=== PATIENT | female | born 1975 | race Caucasian/White ===

== ENCOUNTER 2018-01-06 09:44 | Emergency (ER) | payer OTHER, SELFPAY ==
[2018-01-06 09:45] VITALS: BP 148/97; PULSE 100; RESP 16; TEMP 36.8; O2SAT 98; BMI 38.2
--- NOTE | 2018-01-06 09:55 | CT_ITS ---
STUDY: CT ABDOMEN AND PELVIS WITH CONTRAST REASON FOR EXAM: Female, 42 years old. Lower abdominal pain. RADIATION DOSAGE (If Supplied By Facility): CTDIvol = ( 14.45 ) mGy, DLP = ( 1053.09 ) mGycm TECHNIQUE: Transaxial images were obtained from the dome of the diaphragm to the symphysis pubis with oral contrast. 100ML ml of Isovue 300 contrast was administered. Sagittal and coronal images were reconstructed. Individualized dose optimization techniques were used for this CT. COMPARISON: None. FINDINGS: Minimal degree of bibasilar atelectasis. The visualized portions of the heart are within normal limits. Minimal degree of the intrahepatic biliary ductal dilatation. One centimeters cyst in the medial portion of the left lobe of liver. Findings he is of sludge or tiny gallstones in the gallbladder lumen. Borderline splenomegaly. Normal pancreas. Normal bilateral adrenal glands. Normal right kidney. Normal left kidney. Normal visualized stomach. Normal small intestine. Normal colon. There is a 6.5 cm x 9.1 cm x 7.9 cm complex solid and cystic changes seen in the left lower abdomen and left pelvis. Focal calcification is seen within it. There is evidence of a increased markings in the surrounding peritoneal fat suggestive of possible inflammatory process. A small amount of fluid is seen in both paracolic gutters. Correlation with ultrasound is recommended to rule out a complicated left ovarian mass. There is scattered atherosclerotic calcification of the abdominal aorta, without a demonstrated aneurysm. Normal inferior vena cava. There is borderline retroperitoneal lymphadenopathy with enlarged nodes no greater than 10mm in the short axis diameter. Normal urinary bladder. There is evidence of bilateral tubal ligation. Normal abdominal wall. Degenerative changes at the L5-S1 level. CT/Abdomen/Pelvis WITH Contrast IMPRESSION: Complex solid and cystic mass seen in the left lower abdomen and left pelvis as described with increased markings in the surrounding peritoneal fat. A small amount of fluid is seen in both paracolic gutters. Correlation with ultrasound of the pelvis is recommended for further evaluation. Electronically Signed: Daniel Gross MD at 12:39 EDT Tel [phone], Service support ,
[2018-01-06 10:14] LABS: Absolute Lymphocyte Count 0.82 X10^3/ul (0.83-4.51); Absolute Neutrophil Count 11.3 X10^3/uL (2.0-7.7); Basophil# 0.01 X10^3/uL; Basophil% 0.1 % (0-1); Eosinophil# 0.03 X10^3/uL; Eosinophils% 0.2 % (0-5); Hematocrit 35.9 % (37-47); Hemoglobin 12.1 g/dl (12.0-15.0); Lymphocyte # 0.82 X10^3/ul (4.0); Mean Corp Hgb Conc 33.7 g/gl (32-36); Mean Corpuscular Hgb 28.3 pg (27.0-32.0); Mean Corpuscular Volume 84.1 fL (81-99); Monocyte# 1.51 X10^3/uL; Neutrophil # 11.33 X10^3/uL (2.7-7.7); Neutrophil % 82.5 % (47-70); Platelet Count 321 K/mm3 (150-450); RBC Distribution Width CV 16.5 % (11.6-14.6); RBC Distribution Width SD 50.4 fl (35.1-43.9); Red Blood Count 4.27 M/mm3 (4.2-5.4); White Blood Count 13.7 K/mm3 (4.4-11.0)
[2018-01-06 10:15] LABS: Differential Indicated SCAN CRITERIA MET; POSITIVE COUNT NO; POSITIVE DIFFERENTIAL YES; POSITIVE MORPHOLOGY NO
[2018-01-06] MEDS: Ondansetron 4 MG/2 ML Vial IV (10:27)
[2018-01-06] MEDS: 0.9% Normal Saline 1,000 ML 1000 ML IV (10:27)
[2018-01-06 10:28] LABS: AST(SGOT) 10 U/L (15-37); Alanine Aminotransfer ALT/SGPT 11 U/L (13-56); Albumin, Serum 3.2 g/dL (3.2-5.0); Alkaline Phosphatase 96 U/L (45-117); Anion Gap 9 (5-15); BUN 7 mg/dL (7-18); BUN/Creat Ratio 12.2 RATIO (10-20); Bilirubin, Direct 0.22 mg/dL (0.00-0.30); Calcium,Total 8.9 mg/dL (8.5-10.1); Chloride 98 mmol/L (98-107); Creatinine, Serum 0.58 mg/dL (0.55-1.02); EST Glomerular Filtration Rate 121 mL/min (>60); Est Glom Filt Rate - Afr Amer 147 mL/min (>60); Estimated Creatinine Clearance 103.46 ml/min; Globulin 4.5 g/dL (2.2-4.2); Glucose 121 mg/dL (74-106); Lipase 56 U/L (73-393); Potassium 3.1 mmol/L (3.5-5.1); Protein, Total 7.7 g/dL (6.4-8.2); Sodium Level 136 mmol/L (136-145)
[2018-01-06 10:34] LABS: Pregnancy, Serum, hCG Quali. NEGATIVE Negative (0-9 Nonpreg)
[2018-01-06 10:36] LABS: Differential Comment SCANNED
[2018-01-06 10:36] LABS: Color, Urine Yellow (Yellow); Glucose, Dipstick Normal (Normal); Ketone-Dipstick 50 mg/dl (Negative); Leukocyte Esterase-Dipstick 500 /ul (Negative); Nitrite-Dipstick Negative (Negative); Occult Blood-Urine 10 /ul (Negative); Protein-Dipstick 30 mg/dl (Negative); Urine Bilirubin Dipstick Negative (Negative); Urine Clarity Sl. Cloudy (Clear); Urine Urobilinogen 1 mg/dl (Normal)
[2018-01-06 10:42] LABS: Bacteria 2+ /hpf (None Seen); Mucous, Urine 1+ /hpf (<or=2+); Red Blood Cells-Urine 0-5 SEEN /hpf (0-5); Squamous Epithelial Cells - UA 5-10 SEEN /hpf (5-10); White Blood Cells 25-50 SEEN /hpf (0-5)
--- NOTE | 2018-01-06 10:50 | ED.VISSUMM ---
- ER Visit Summary Date of Service: 01/06/18 Chief Complaint: Abdominal pain History of Present Illness: The patient is a 42 F who goes to [facility]. She reports that she has lower abdominal pain that began 3 days ago. Is gradually gotten worse. Is a sharp pain is 10 out of 10 at worst and 6 out of 10 currently. Is worsened by movement and relieved by oxycodone. She was she has been nausea and vomited once. No blood or emesis. Her last bowel was 2 days ago. She has had no diarrhea. No melena or hematochezia. She does reports she has had dysuria, but no frequency or hematuria. Last menstrual it was approximately 1 week ago. She denies any vaginal discharge. Patient reports that she had a similar episode last August and had a workup in [place] that was negative. She went to [place] the next day and was diagnosed with an ovarian cyst. She followed up with Dr. Anna Medrano and had an extra toward laparoscopy that showed no cyst, but a great deal of scar tissue that was debrided. Physical Examination: Vitals: Stable. Afebrile. General: Well-nourished and well-developed. Head: Normocephalic atraumatic. Neck: Supple, no lymphadenopathy. No JVD. Nontender. Cardiovascular: Regular rate and rhythm. No murmurs. Respiratory: No respiratory distress. Clear to auscultation bilaterally. Abdominal: Soft, mild diffuse tenderness palpation with moderate pain over the left lower quadrant, suprapubic region, and right lower quadrant, nondistended, normal bowel sounds. No guarding, rebound, or peritoneal signs. Back: Nontender. Extremities: Nontender, no edema. Skin: Normal color, no rash. Neurologic: Alert and oriented ?3. Cranial nerves II through XII are intact. Normal strength and sensation. Psych: Normal affect. Test Results: CBC is marked for white count of 13.7 with 83 segmented neutrophils and 6 lymphocytes. Her hematocrit is 35.9. Chem-7 marked potassium 3.1 glucose 121. test is negative. LFTs marked for globulin 4.5, ALT of 11, AST of 10. Lipase is normal. UA shows 25-50 whites and 5-10 epithelial cells with 2+ bacteria. CT shows a 6.5 x 9.1 x 7.9 cm complex solid/cystic mass in the left lower abdomen/pelvis with focal calcifications within it. Increased markings in the surrounding peritoneal fat question inflammatory. Ultrasound was suggested. This shows a the left ovary to be 6.3 x 5.6 x 4.4 cm with a 4.7 x 3.8 x 3.1 cm complex solid and cystic mass. Neoplastic versus inflammatory. Normal flow. Emergency Department Course and Treatment: Patient had an IV placed. She was given morphine and Zofran IV. She is resting comfortably. Treatment Plan: The patient was discussed with Dr. Barksdale, on-call for Dr. Anna Medrano. The operative report from September was reviewed with him. At that time her left ovary appeared normal. She will have a CEA 125 sent off and be discharged with naproxen and Percocet. Instructed follow-up with Dr. Lily Medrano in 1 week for another exam. Return to the emergency department for any worsening symptoms. Disposition: To home in improved and stable condition. Impression: 1. Left ovarian cyst/mass. This note was generated with [employer] dictation software. It may contain incorrect words, spelling, and punctuation that were not noted in review of the chart prior to signing ED Disposition - Plan for ED Patient: Chief Complaint: Abd Pain Instructions: ED Cyst Ovarian Prescriptions: Oxycodone HCl/Acetaminophen [Percocet 5/325] 1 tablet PO Q6H PRN PRN 5 Days #20 tablet PRN Reason: Pain Naproxen [Naprosyn] 500 mg PO BID PRN #20 tablet Referrals: Jelena Calhoun MD [STAFF PHYSICIAN] - 1 Week
[2018-01-06 12:23] VITALS: BP 121/73; PULSE 79; RESP 16; O2SAT 98
--- NOTE | 2018-01-06 12:49 | US_ITS ---
STUDY: ULTRASOUND OF THE FEMALE PELVIS - COMPLETE REASON FOR EXAM: Female, 42 years old. Left pelvic pain. Pelvic mass seen on a recent CT scan. LMP: December 26, 2017. TECHNIQUE: Transabdominal and Transvaginal TECHNICAL QUALITY: Adequate. COMPARISON: Comparison is made with prior CT scan of the pelvis done earlier today. FINDINGS: The uterus is anteverted and is tilted to the right side of the pelvis. The uterus is enlarged and measures 10.2 cm x 6.8 cm x 5.3 cm. There is a Nabothian cyst of the cervix. The endometrium measures 6.0 mm in thickness, and is . There is no demonstrated endometrial mass. There is a 1.6 cm x 1.4 cm x 1.0 cm fundal fibroid. I.U.D. - The patient does not have an I.U.D. The right ovary is visualized. The right ovary measures 4.2 cm x 2.8 x 2.2 cm. There is no right ovarian cyst or ovarian mass. There is no visualized right adnexal mass or complex lesion. There is normal arterial and normal venous vascularity. The left ovary is visualized. The left ovary is enlarged and measures 6.3 cm x 5.6 cm x 4.4 cm. There is a 4.7 cm x 3.8 cm x 3.1 cm complex solid and cystic mass in the left adnexa. This may represent either a neoplastic process or inflammatory process. Follow-up is recommended. There is no visualized left adnexal mass or complex lesion. There is normal arterial and normal venous vascularity. There is minimal fluid in the cul-de-sac. Polycystic ovary disease: No. US/Transvaginal Non- IMPRESSION: Complex solid and cystic mass in the left adnexa corresponding to the CT findings. Electronically Signed: Daniel Gross MD at 14:32 EDT Tel [phone], Service support ,
[2018-01-06 16:14] VITALS: BP 134/74; BP 134/76; PULSE 84; PULSE 89; RESP 16; O2SAT 94
[2018-01-08 11:29] LABS: Cancer Antigen 125 44.6 U/mL (0.0-38.1)
== END 2018-01-06 16:16 | disposition home or self-care (01) ==
PROVIDERS: Emergency Provider Emergency Medicine
DX: N83.292 Other ovarian cyst, left side (principal)
CPT/HCPCS: 36415; 74177; 76830; 80048; 80076; 81001; 83690; 84703; 85025; 86304; 93976; 96361; 96374; 96375; 96376; 99283; J7030; Q9967; A4216; J2405

== ENCOUNTER → 2018-01-16 17:36 | Outpatient (CLI) | payer OTHER, SELFPAY ==
--- NOTE | 2018-01-16 18:15 | MRI_ITS ---
STUDY: MR PELVIS WITH T WITHOUT CONTRAST REASON FOR EXAM: Female, 42 years old. Evaluate left adnexal mass. TECHNIQUE: Standardized fat and water weighted pulse sequences were obtained in all 3 orthogonal planes, pre-and post contrast administration. 10 ml of Gadavist contrast material was administered intravenously for the contrast portion of the examination. COMPARISON: Pelvic ultrasound dated January 06, 2018. FINDINGS: Normal urinary bladder. Normal visualized small intestine. Normal visualized colon. The uterus is enlarged. There are multiple myometrial masses. The posterior myometrial mass measures 2.2 x 1.8 x 2.4 cm in size. There is an anterior uterine myometrial mass measuring approximately 1.9 cm in greatest dimension. These masses have decreased T2 signal. There is also left paramedian myometrial mass located within the posterior fundus measuring approximately 1.9 cm in greatest dimension. The junctional zone measures approximately 1.4 cm in thickness. The cervix has a nabothian cysts. The cervix otherwise has a normal appearance. Endometrium has bright T2 signal and measures approximately 10 mm in thickness. There is no pelvic fluid. There is enlargement of the left ovary with what appears to multiple cystic lesions. These are bright on the T2-weighted images and isointense to uterine myometrium on the T1 weighted images. The largest cystic lesion measures up to 2.4 cm in greatest dimension. The the overall dimensions of what probably represents an enlarged left ovary is 4.7 x 2.8 x 4.1 cm in greatest dimension. The right ovary also has multiple cystic lesions. The right ovary measures approximately 4.0 x 2.3 x 2.0 cm in size. Normal visualized pelvic arteries. There is degenerative disc disease at L5-S1 with narrowing of the disc. The visualized sacrum and iliac wings have a grossly normal appearance. Normal abdominal wall. MRI/Pelvis W/WO Contrast IMPRESSION: 1. Enlarged left ovary secondary to multiple cysts. This suggests possible sequela of polycystic ovary disease. 2. Multiple uterine masses likely representing leiomyomata. 3. The right ovary also has multiple cystic lesions. Electronically Signed: Meli Chiu MD at 7:33 EDT , Service support ,
== END ==
PROVIDERS: Visit Provider Obstetrics & Gynecology
DX: N83.202 Unspecified ovarian cyst, left side (principal); N83.201 Unspecified ovarian cyst, right side; R19.09 Other intra-abdominal and pelvic swelling, mass and lump; R10.30 Lower abdominal pain, unspecified
CPT/HCPCS: 72197; A9585

== ENCOUNTER → 2018-01-17 15:49 | Outpatient (CLI) | payer OTHER, SELFPAY ==
[2018-01-17 16:25] LABS: Absolute Lymphocyte Count 2.01 X10^3/ul (0.83-4.51); Absolute Neutrophil Count 6.4 X10^3/uL (2.0-7.7); Basophil# 0.02 X10^3/uL; Basophil% 0.2 % (0-1); Eosinophil# 0.27 X10^3/uL; Eosinophils% 2.9 % (0-5); Hematocrit 37.1 % (37-47); Hemoglobin 11.7 g/dl (12.0-15.0); Lymphocyte # 2.01 X10^3/ul (4.0); Lymphocyte % 21.9 % (19-41); Mean Corp Hgb Conc 31.5 g/gl (32-36); Mean Corpuscular Hgb 26.9 pg (27.0-32.0); Mean Corpuscular Volume 85.3 fL (81-99); Mean Platelet Vol. 9.7 fl (6.2-12.0); Monocyte# 0.45 X10^3/uL; Monocyte% 4.9 % (0-10); Neutrophil % 69.7 % (47-70); Platelet Count 481 K/mm3 (150-450); RBC Distribution Width CV 16.7 % (11.6-14.6); RBC Distribution Width SD 52.6 fl (35.1-43.9); Red Blood Count 4.35 M/mm3 (4.2-5.4); White Blood Count 9.2 K/mm3 (4.4-11.0)
[2018-01-17 17:08] LABS: POSITIVE COUNT NO; POSITIVE DIFFERENTIAL NO; POSITIVE MORPHOLOGY NO
== END ==
PROVIDERS: Visit Provider Obstetrics & Gynecology
DX: D72.829 Elevated white blood cell count, unspecified (principal)
CPT/HCPCS: 36415; 85025

== ENCOUNTER → 2018-04-04 14:33 | Outpatient (CLI) | payer OTHER, SELFPAY ==
[2018-04-09 15:00] LABS: HPV APTIMA, High Risk Negative (Negative)
== END ==
PROVIDERS: Visit Provider Obstetrics & Gynecology
DX: Z01.419 Encounter for gynecological examination (general) (routine) without abnormal findings (principal)
CPT/HCPCS: 88175; G0145

== ENCOUNTER → 2019-03-13 14:29 | Outpatient (CLI) | payer OTHER, SELFPAY ==
[2019-03-13 15:42] LABS: Absolute Lymphocyte Count 1.59 X10^3/ul (0.83-4.51); Absolute Neutrophil Count 4.7 X10^3/uL (2.0-7.7); Basophil# 0.02 X10^3/uL; Basophil% 0.3 % (0-1); Eosinophil# 0.25 X10^3/uL; Eosinophils% 3.4 % (0-5); Hematocrit 37.3 % (37-47); Lymphocyte # 1.59 X10^3/ul (4.0); Lymphocyte % 21.9 % (19-41); Mean Corp Hgb Conc 32.2 g/gl (32-36); Mean Corpuscular Hgb 26.3 pg (27.0-32.0); Mean Corpuscular Volume 81.8 fL (81-99); Monocyte# 0.63 X10^3/uL; Monocyte% 8.7 % (0-10); Neutrophil # 4.74 X10^3/uL (2.7-7.7); Neutrophil % 65.3 % (47-70); Platelet Count 368 K/mm3 (150-450); RBC Distribution Width CV 22.1 % (11.6-14.6); RBC Distribution Width SD 63.8 fl (35.1-43.9); Red Blood Count 4.56 M/mm3 (4.2-5.4); White Blood Count 7.3 K/mm3 (4.4-11.0)
[2019-03-13 15:54] LABS: Differential Indicated SCAN CRITERIA MET; POSITIVE COUNT NO; POSITIVE DIFFERENTIAL NO; POSITIVE MORPHOLOGY YES
[2019-03-13 16:08] LABS: ALB/GLOB Ratio 1.1 RATIO (0.9-2.4); AST(SGOT) 13 U/L (15-37); Alanine Aminotransfer ALT/SGPT 17 U/L (13-56); Albumin, Serum 3.7 g/dL (3.2-5.0); Alkaline Phosphatase 91 U/L (45-117); Anion Gap 5 (5-15); BUN 18 mg/dL (7-18); BUN/Creat Ratio 29.2 RATIO (10-20); Calcium,Total 8.5 mg/dL (8.5-10.1); Chloride 108 mmol/L (98-107); Cholesterol 219 mg/dL (200); Creatinine, Serum 0.62 mg/dL (0.55-1.02); EST Glomerular Filtration Rate 112 mL/min (>60); Est Glom Filt Rate - Afr Amer 135 mL/min (>60); Ferritin 15 ng/mL (8-252); Globulin 3.5 g/dL (2.2-4.2); Glucose 80 mg/dL (74-106); High Density Lipoprotein 81 mg/dL; Iron 321 ug/dL (50-170); Iron Binding Capacity,Total 383 ug/dL (250-450); Potassium 4.2 mmol/L (3.5-5.1); Protein, Total 7.2 g/dL (6.4-8.2); Sodium Level 139 mmol/L (136-145); Triglycerides 86 mg/dL; Very Low Density Lipoprotein 17 mg/dL (5-40)
[2019-03-13 16:27] LABS: Anisocytosis 1+; Microcytosis RARE; Ovalocyte RARE; Platelet Estimate ADEQUATE (ADEQ); Target Cells RARE
== END ==
PROVIDERS: Family Provider Family Medicine; PCP Family Medicine; Referring Provider Family Medicine; Visit Provider Family Medicine
DX: D50.9 Iron deficiency anemia, unspecified (principal); E66.9 Obesity, unspecified
CPT/HCPCS: 36415; 80053; 80061; 82728; 83540; 83550; 85025

== ENCOUNTER → 2019-04-01 13:47 | Outpatient (CLI) | payer OTHER, SELFPAY ==
--- NOTE | 2019-04-01 13:49 | ECHOD_ITS ---
Reason For Study: MURMUR Procedure This was a 2D Doppler, Color Flow transthoracic echocardiogram. Exam performed in department. Left Ventricle Normal LV size. Left ventricular systolic function is normal. The estimated ejection fraction is 55 %. There is evidence of diastolic dysfunction. No regional wall motion abnormalities noted. Right Ventricle Normal RV size. Normal systolic function. Atria Normal left atrium. Normal right atrium. Mitral Valve Normal mitral valve. Mild (1+) mitral valve insufficiency. Tricuspid Valve Normal tricuspid valve. Mild (1+) tricuspid valve insufficiency. Pulmonary artery systolic pressure is 28 mmHg. Aortic Valve Normal aortic valve. Trisinus/trileaflet aortic valve. Pulmonic Valve Normal pulmonic valve. Great Vessels Normal aortic root. The pulmonary artery is normal size. Normal inferior vena cava. Pericardium/Pleural No pericardial effusion. MMode/2D Measurements & Calculations LVIDd: 4.4 cm IVSd: 0.85 cm LVOT diam: 2.0 cm LVIDs: 2.9 cm LVPWd: 0.88 cm LVOT area: 3.1 cm2 RVDd: 3.1 cm FS: 35.0 % Ao root diam: 3.3 cm LAV(MOD-bp): 43.6 ml Aortic Valve Planimetry: 1.9 cm2 LAV(MOD-bp) Indexed: 21.2 ml/m2 LAV(MOD-sp2): 43.7 ml LAV(MOD-sp4): 43.5 ml LA dimension(2D): 4.0 cm LA A4 area: 16.2 cm2 RA A4 area: 14.4 cm2 Time Measurements MV dec time: 0.25 sec Doppler Measurements & Calculations MV E max tejinder: 83.9 cm/sec Lat Peak E' Tjeinder: 10.0 cm/sec Med Peak E' Tejinder: 7.4 cm/sec MV A max tejinder: 66.1 cm/sec E/E' lat: 8.4 E/E' med: 11.3 MV E/A: 1.3 Ao V2 max: 208.7 cm/sec LV V1 max: 121.7 cm/sec SV(LVOT): 75.6 ml Ao max P.4 mmHg LV V1 max P.9 mmHg Ao V2 mean: 143.4 cm/sec LV V1 mean P.8 mmHg Ao mean P.3 mmHg LV V1 mean: 77.0 cm/sec Ao V2 VTI: 43.0 cm LV V1 VTI: 24.7 cm TONY(I,D): 1.8 cm2 TONY(V,D): 1.8 cm2 TR max tejinder: 241.5 cm/sec TR max P.3 mmHg Interpretation Summary Normal LV size. Left ventricular systolic function is normal. The estimated ejection fraction is 55 %. There is evidence of diastolic dysfunction. Mild (1+) tricuspid valve insufficiency. Ordering Physician: Manny Noel Referring Physician: Manny Noel Performed By: Supriya Hall, PRANAV, RVT
== END ==
PROVIDERS: Family Provider Family Medicine; PCP Family Medicine; Referring Provider Family Medicine; Visit Provider Family Medicine
DX: R01.1 Cardiac murmur, unspecified (principal)
CPT/HCPCS: 93306

== ENCOUNTER → 2019-04-15 09:39 | Outpatient (CLI) | payer OTHER, SELFPAY ==
[2019-04-15 13:37] LABS: Iron 26 ug/dL (50-170); Thyroid Stim Hormone (TSH) 1.12 uIU/mL (0.358-3.74)
== END ==
PROVIDERS: Family Provider Family Medicine; PCP Family Medicine; Referring Provider Family Medicine; Visit Provider Family Medicine
DX: E83.19 Other disorders of iron metabolism (principal); E66.9 Obesity, unspecified
CPT/HCPCS: 36415; 83540; 84443

== ENCOUNTER → 2019-04-22 15:24 | Outpatient (CLI) | payer OTHER, SELFPAY ==
[2019-04-22 17:45] LABS: Absolute Lymphocyte Count 1.64 X10^3/ul (0.83-4.51); Basophil# 0.02 X10^3/uL; Basophil% 0.3 % (0-1); Eosinophils% 3.2 % (0-5); Hematocrit 35.9 % (37-47); Hemoglobin 11.5 g/dl (12.0-15.0); Lymphocyte # 1.64 X10^3/ul (4.0); Lymphocyte % 26.2 % (19-41); Mean Corpuscular Hgb 27.1 pg (27.0-32.0); Mean Corpuscular Volume 84.7 fL (81-99); Mean Platelet Vol. 10.8 fl (6.2-12.0); Monocyte% 6.4 % (0-10); Neutrophil # 4.01 X10^3/uL (2.7-7.7); Neutrophil % 63.9 % (47-70); Platelet Count 350 K/mm3 (150-450); RBC Distribution Width SD 55.6 fl (35.1-43.9); Red Blood Count 4.24 M/mm3 (4.2-5.4); White Blood Count 6.3 K/mm3 (4.4-11.0)
[2019-04-22 17:57] LABS: Ferritin 7 ng/mL (8-252); Iron 28 ug/dL (50-170); Iron Binding Capacity,Total 374 ug/dL (250-450); PERCENT IRON SATURATION 7.5 % (15.0-55.0)
[2019-04-22 18:12] LABS: POSITIVE COUNT NO; POSITIVE DIFFERENTIAL NO; POSITIVE MORPHOLOGY NO
== END ==
PROVIDERS: Family Provider Family Medicine; PCP Family Medicine; Referring Provider Family Medicine; Visit Provider Family Medicine
DX: D64.9 Anemia, unspecified (principal)
CPT/HCPCS: 36415; 82728; 83540; 83550; 85025

== ENCOUNTER → 2019-05-13 13:35 | Outpatient (CLI) | payer OTHER, SELFPAY ==
[2019-05-13 15:07] LABS: Anion Gap 5 (5-15); BUN 19 mg/dL (7-18); BUN/Creat Ratio 27.5 RATIO (10-20); Calcium,Total 8.6 mg/dL (8.5-10.1); Chloride 106 mmol/L (98-107); Creatinine, Serum 0.69 mg/dL (0.55-1.02); EST Glomerular Filtration Rate 98 mL/min (>60); Est Glom Filt Rate - Afr Amer 118 mL/min (>60); Ferritin 17 ng/mL (8-252); Glucose 88 mg/dL (74-106); Iron 204 ug/dL (50-170); Iron Binding Capacity,Total 323 ug/dL (250-450); PERCENT IRON SATURATION 63.2 % (15.0-55.0); Potassium 4.2 mmol/L (3.5-5.1); Sodium Level 138 mmol/L (136-145)
== END ==
PROVIDERS: Family Provider Family Medicine; PCP Family Medicine; Referring Provider Family Medicine; Visit Provider Family Medicine
DX: D50.9 Iron deficiency anemia, unspecified (principal)
CPT/HCPCS: 36415; 80048; 82728; 83540; 83550

== ENCOUNTER → 2019-06-10 09:43 | Outpatient (CLI) | payer OTHER, SELFPAY ==
[2019-06-10 12:29] LABS: Absolute Lymphocyte Count 1.47 X10^3/uL (0.83-4.51); Absolute Neutrophil Count 4.1 X10^3/uL (2.0-7.7); Basophil# 0.02 X10^3/uL; Basophil% 0.3 % (0-1); Eosinophil# 0.24 X10^3/uL; Eosinophils% 3.8 % (0-5); Hematocrit 35.9 % (37-47); Hemoglobin 11.7 g/dL (12.0-15.0); Lymphocyte # 1.47 X10^3/ul (4.0); Lymphocyte % 23.4 % (19-41); Mean Corp Hgb Conc 32.6 g/dL (32-36); Mean Corpuscular Volume 88.9 fL (81-99); Mean Platelet Vol. 11.5 fl (6.2-12.0); Monocyte# 0.49 X10^3/uL; Monocyte% 7.8 % (0-10); NRBC Flagged by Analyzer 0 % (0-5); Neutrophil # 4.05 X10^3/uL (2.7-7.7); Neutrophil % 64.5 % (47-70); Platelet Count 271 K/mm3 (150-450); RBC Distribution Width CV 15.8 % (11.6-14.6); Red Blood Count 4.04 M/mm3 (4.2-5.4); White Blood Count 6.3 K/mm3 (4.4-11.0)
[2019-06-10 12:45] LABS: Ferritin 10 ng/mL (8-252); Iron 34 ug/dL (50-170); Iron Binding Capacity,Total 342 ug/dL (250-450); PERCENT IRON SATURATION 9.9 % (15.0-55.0)
== END ==
PROVIDERS: Family Provider Family Medicine; PCP Family Medicine; Referring Provider Family Medicine; Visit Provider Family Medicine
DX: E83.19 Other disorders of iron metabolism (principal)
CPT/HCPCS: 36415; 82728; 83540; 83550; 85025

== ENCOUNTER → 2019-07-03 09:52 | Outpatient (CLI) | payer OTHER, SELFPAY ==
--- NOTE | 2019-07-03 09:54 | BI_ITS ---
MAMMOGRAPHY - BILATERAL SCREENING REASON FOR EXAM: Female, 44 years old. Routine annual screening examination. PERTINENT HISTORY: Grandmother with breast cancer. Aunts with breast cancer. TECHNIQUE: Digital bilateral breast isabel (3D mammographic acquisition) in the CC and MLO projections. 2-D mediolateral oblique (MLO) and craniocaudad (CC) views of both breasts were obtained. CAD: Full Field Digital Mammography with Computer Added Detection was performed. COMPARISON: None. Baseline examination. FINDINGS: Breast Composition: The breasts are heterogeneously dense, which may obscure small masses. There are no dominant masses or suspicious calcifications. No other significant abnormalities are identified. BI/SCREEN MAMM (CAD) W/ISABEL BILAT IMPRESSION: Negative screening mammogram. Yearly followup mammogram recommended. (A) ASSESSMENT CATEGORY: BIRADS Category 1: Negative. A letter regarding these results will be sent to the patient by the facility within 30 days. Approximately 10% of breast cancers are not detected by mammography. A normal mammogram should not delay biopsy of a clinically suspicious abnormality. [id number] Electronically Signed: Daniel Gross, at 11:00 EDT , Service support ,
== END ==
PROVIDERS: Family Provider Family Medicine; PCP Family Medicine; Referring Provider Obstetrics & Gynecology; Visit Provider Obstetrics & Gynecology
DX: Z12.31 Encounter for screening mammogram for malignant neoplasm of breast (principal); Z80.3 Family history of malignant neoplasm of breast
CPT/HCPCS: 77063; 77067

== ENCOUNTER → 2019-10-13 09:46 | Outpatient (CLI) | payer OTHER, SELFPAY ==
[2019-10-13 12:10] LABS: Absolute Lymphocyte Count 1.34 X10^3/uL (0.83-4.51); Absolute Neutrophil Count 6.6 X10^3/uL (2.0-7.7); Basophil# 0.02 X10^3/uL; Basophil% 0.2 % (0-1); Eosinophils% 1.1 % (0-5); Hematocrit 38.4 % (37-47); Hemoglobin 12.7 g/dL (12.0-15.0); Lymphocyte # 1.34 X10^3/ul (4.0); Lymphocyte % 15.4 % (19-41); Mean Corp Hgb Conc 33.1 g/dL (32-36); Mean Corpuscular Hgb 30.2 pg (27.0-32.0); Mean Corpuscular Volume 91.2 fL (81-99); Mean Platelet Vol. 11.2 fl (6.2-12.0); Monocyte# 0.62 X10^3/uL; Monocyte% 7.1 % (0-10); NRBC Flagged by Analyzer 0 % (0-5); Platelet Count 283 K/mm3 (150-450); RBC Distribution Width CV 14.9 % (11.6-14.6); RBC Distribution Width SD 48.7 fl (35.1-43.9); Red Blood Count 4.21 M/mm3 (4.2-5.4); White Blood Count 8.7 K/mm3 (4.4-11.0)
[2019-10-13 12:26] LABS: Ferritin 23 ng/mL (8-252); Iron 44 ug/dL (50-170); Iron Binding Capacity,Total 333 ug/dL (250-450)
== END ==
PROVIDERS: Family Provider Family Medicine; PCP Family Medicine; Visit Provider Family Medicine
DX: D50.9 Iron deficiency anemia, unspecified (principal)
CPT/HCPCS: 36415; 82728; 83540; 83550; 85025

== ENCOUNTER → 2020-04-19 09:56 | Outpatient (CLI) | payer OTHER, SELFPAY ==
[2020-04-19 12:26] LABS: Absolute Lymphocyte Count 1.37 X10^3/uL (0.83-4.51); Absolute Neutrophil Count 4.1 X10^3/uL (2.0-7.7); Basophil# 0.02 X10^3/uL; Basophil% 0.3 % (0-1); Eosinophil# 0.14 X10^3/uL; Eosinophils% 2.2 % (0-5); Hematocrit 42.6 % (37-47); Hemoglobin 13.8 g/dL (12.0-15.0); Lymphocyte # 1.37 X10^3/ul (4.0); Lymphocyte % 21.7 % (19-41); Mean Corp Hgb Conc 32.4 g/dL (32-36); Mean Corpuscular Hgb 30.3 pg (27.0-32.0); Mean Corpuscular Volume 93.4 fL (81-99); Mean Platelet Vol. 11.7 fl (6.2-12.0); Monocyte# 0.62 X10^3/uL; Monocyte% 9.8 % (0-10); NRBC Flagged by Analyzer 0 % (0-5); Neutrophil # 4.14 X10^3/uL (2.7-7.7); Neutrophil % 65.7 % (47-70); Platelet Count 304 K/mm3 (150-450); RBC Distribution Width CV 14.4 % (11.6-14.6); RBC Distribution Width SD 49.3 fl (35.1-43.9); Red Blood Count 4.56 M/mm3 (4.2-5.4); White Blood Count 6.3 K/mm3 (4.4-11.0)
[2020-04-19 12:49] LABS: Ferritin 18 ng/mL (8-252); Iron 285 ug/dL (50-170); Iron Binding Capacity,Total 319 ug/dL (250-450)
== END ==
PROVIDERS: PCP Family Medicine; Visit Provider Family Medicine
DX: E61.1 Iron deficiency (principal)
CPT/HCPCS: 36415; 82728; 83540; 83550; 85025

== ENCOUNTER → 2020-09-20 12:43 | Outpatient (CLI) | payer OTHER, SELFPAY ==
--- NOTE | 2020-09-20 12:45 | BI_ITS ---
MAMMOGRAPHY - BILATERAL SCREENING REASON FOR EXAM: Female, 45 years old. Routine annual screening examination. PERTINENT HISTORY: Grandmother with breast cancer. TECHNIQUE: Digital bilateral breast isabel (3D mammographic acquisition) in the CC and MLO projections. 2-D mediolateral oblique (MLO) and craniocaudad (CC) views of both breasts were obtained. CAD: Full Field Digital Mammography with Computer Added Detection was performed. COMPARISON: Comparison is made with prior study dated 07/03/2019. FINDINGS: Breast Composition: The breasts are heterogeneously dense, which may obscure small masses. There are no dominant masses or suspicious calcifications. Stable small benign-appearing bilateral axillary lymph nodes. No other significant abnormalities are identified. There has been no significant change since the prior study. BI/SCREEN MAMM (CAD) W/ISABEL BILAT IMPRESSION: Stable bilateral screening mammogram. Yearly follow-up mammogram recommended. (A) ASSESSMENT CATEGORY: BIRADS Category 2: Benign. A letter regarding these results will be sent to the patient by the facility within 30 days. Approximately 10% of breast cancers are not detected by mammography. A normal mammogram should not delay biopsy of a clinically suspicious abnormality. [id number] Electronically Signed: Daniel Gross, at 14:00 EST , Service support ,
== END ==
PROVIDERS: PCP Family Medicine; Referring Provider Obstetrics & Gynecology; Visit Provider Obstetrics & Gynecology
DX: Z12.31 Encounter for screening mammogram for malignant neoplasm of breast (principal)
CPT/HCPCS: 77063; 77067

== ENCOUNTER → 2020-10-28 14:39 | Outpatient (CLI) | payer OTHER, SELFPAY ==
[2020-10-28 17:50] LABS: Absolute Lymphocyte Count 1.45 X10^3/uL (0.83-4.51); Absolute Neutrophil Count 3.4 X10^3/uL (2.0-7.7); Basophil# 0.03 X10^3/uL; Basophil% 0.5 % (0-1); Eosinophil# 0.07 X10^3/uL; Eosinophils% 1.3 % (0-5); Hematocrit 38.4 % (37-47); Hemoglobin 12.1 g/dL (12.0-15.0); Lymphocyte # 1.45 X10^3/ul (4.0); Lymphocyte % 26.1 % (19-41); Mean Corp Hgb Conc 31.5 g/dL (32-36); Mean Corpuscular Hgb 27.3 pg (27.0-32.0); Mean Corpuscular Volume 86.5 fL (81-99); Mean Platelet Vol. 11.6 fl (6.2-12.0); Monocyte# 0.57 X10^3/uL; Monocyte% 10.3 % (0-10); NRBC Flagged by Analyzer 0 % (0-5); Neutrophil # 3.41 X10^3/uL (2.7-7.7); Neutrophil % 61.4 % (47-70); Platelet Count 314 K/mm3 (150-450); RBC Distribution Width CV 17.1 % (11.6-14.6); Red Blood Count 4.44 M/mm3 (4.2-5.4); White Blood Count 5.6 K/mm3 (4.4-11.0)
[2020-10-28 18:03] LABS: Ferritin 20 ng/mL (8-252); Iron 158 ug/dL (50-170); Iron Binding Capacity,Total 337 ug/dL (250-450)
== END ==
PROVIDERS: PCP Family Medicine; Visit Provider Family Medicine
DX: E61.1 Iron deficiency (principal)
CPT/HCPCS: 36415; 82728; 83540; 83550; 85025

== ENCOUNTER → 2021-04-27 14:39 | Outpatient (CLI) | payer OTHER, SELFPAY ==
[2021-04-27 17:43] LABS: Absolute Lymphocyte Count 1.33 X10^3/uL (0.83-4.51); Absolute Neutrophil Count 4.5 X10^3/uL (2.0-7.7); Basophil# 0.02 X10^3/uL; Basophil% 0.3 % (0-1); Eosinophil# 0.09 X10^3/uL; Eosinophils% 1.4 % (0-5); Hematocrit 34.4 % (37-47); Hemoglobin 10.6 g/dL (12.0-15.0); Lymphocyte # 1.33 X10^3/ul (0.83-4.51); Lymphocyte % 20.3 % (19-41); Mean Corp Hgb Conc 30.8 g/dL (32-36); Mean Corpuscular Hgb 24.9 pg (27.0-32.0); Mean Corpuscular Volume 80.8 fL (81-99); Mean Platelet Vol. 11.3 fl (6.2-12.0); Monocyte# 0.58 X10^3/uL; Monocyte% 8.8 % (0-10); NRBC Flagged by Analyzer 0 % (0-5); Neutrophil # 4.52 X10^3/uL (2.7-7.7); Neutrophil % 68.9 % (47-70); Platelet Count 381 K/mm3 (150-450); RBC Distribution Width CV 15.5 % (11.6-14.6); RBC Distribution Width SD 44.8 fl (35.1-43.9); Red Blood Count 4.26 M/mm3 (4.2-5.4); White Blood Count 6.6 K/mm3 (4.4-11.0)
[2021-04-27 17:58] LABS: Ferritin 8 ng/mL (8-252); Iron 20 ug/dL (50-170); Iron Binding Capacity,Total 385 ug/dL (250-450)
== END ==
PROVIDERS: PCP Family Medicine; Visit Provider Family Medicine
DX: E61.1 Iron deficiency (principal)
CPT/HCPCS: 36415; 82728; 83540; 83550; 85025

== ENCOUNTER → 2021-06-06 14:09 | Outpatient (CLI) | payer OTHER, SELFPAY ==
[2021-06-06 18:06] LABS: Absolute Lymphocyte Count 1.66 X10^3/uL (0.83-4.51); Absolute Neutrophil Count 4.2 X10^3/uL (2.0-7.7); Basophil# 0.02 X10^3/uL; Basophil% 0.3 % (0-1); Eosinophil# 0.23 X10^3/uL; Eosinophils% 3.4 % (0-5); Hematocrit 37.6 % (37-47); Hemoglobin 11.8 g/dL (12.0-15.0); Lymphocyte # 1.66 X10^3/ul (0.83-4.51); Lymphocyte % 24.7 % (19-41); Mean Corp Hgb Conc 31.4 g/dL (32-36); Mean Corpuscular Hgb 27.3 pg (27.0-32.0); Mean Platelet Vol. 11.4 fl (6.2-12.0); Monocyte# 0.57 X10^3/uL; Monocyte% 8.5 % (0-10); NRBC Flagged by Analyzer 0 % (0-5); Neutrophil # 4.22 X10^3/uL (2.7-7.7); Neutrophil % 62.7 % (47-70); POSITIVE MORPHOLOGY YES; Platelet Count 310 K/mm3 (150-450); RBC Distribution Width CV 22.2 % (11.6-14.6); RBC Distribution Width SD 69.4 fl (35.1-43.9); Red Blood Count 4.32 M/mm3 (4.2-5.4); White Blood Count 6.7 K/mm3 (4.4-11.0)
[2021-06-06 18:07] LABS: Differential Indicated SCAN CRITERIA MET
[2021-06-06 18:41] LABS: Ferritin 30 ng/mL (8-252); Iron 89 ug/dL (50-170); Iron Binding Capacity,Total 305 ug/dL (250-450); PERCENT IRON SATURATION 29.2 % (15.0-55.0)
[2021-06-06 18:42] LABS: Differential Comment SCANNED
== END ==
PROVIDERS: PCP Family Medicine; Referring Provider Family Medicine; Visit Provider Family Medicine
DX: D64.9 Anemia, unspecified (principal)
CPT/HCPCS: 36415; 82728; 83540; 83550; 85025

== ENCOUNTER → 2021-10-17 | Outpatient (CLI) | payer OTHER, SELFPAY ==
[2021-10-24 18:11] LABS: HPV APTIMA, High Risk Negative (Negative)
== END | disposition home or self-care (01) ==
LOC: LABSPEC 12:09
PROVIDERS: PCP Family Medicine; Visit Provider Obstetrics & Gynecology
DX: Z12.4 Encounter for screening for malignant neoplasm of cervix (principal)
CPT/HCPCS: 87624; 88175; G0145

== ENCOUNTER 2021-11-15 12:12 | Outpatient (CLI) | payer OTHER, SELFPAY ==
[2021-11-15 15:13] LABS: Absolute Lymphocyte Count 1.54 X10^3/uL (0.83-4.51); Absolute Neutrophil Count 3.3 X10^3/uL (2.0-7.7); Basophil# 0.03 X10^3/uL; Basophil% 0.5 % (0-1); Eosinophil# 0.18 X10^3/uL; Eosinophils% 3.2 % (0-5); Hematocrit 34.6 % (37-47); Hemoglobin 11.2 g/dL (12.0-15.0); Lymphocyte # 1.54 X10^3/ul (0.83-4.51); Lymphocyte % 27.3 % (19-41); Mean Corp Hgb Conc 32.4 g/dL (32-36); Mean Corpuscular Hgb 27.7 pg (27.0-32.0); Mean Corpuscular Volume 85.6 fL (81-99); Monocyte% 10.6 % (0-10); NRBC Flagged by Analyzer 0 % (0-5); Neutrophil # 3.27 X10^3/uL (2.7-7.7); Platelet Count 340 K/mm3 (150-450); RBC Distribution Width SD 47.5 fl (35.1-43.9); Red Blood Count 4.04 M/mm3 (4.2-5.4); White Blood Count 5.6 K/mm3 (4.4-11.0)
[2021-11-15 18:13] LABS: Iron 51 ug/dL (50-170); Iron Binding Capacity,Total 372 ug/dL (250-450); PERCENT IRON SATURATION 13.7 % (15.0-55.0)
== END 2021-11-15 23:59 | disposition short-term general hospital (02) ==
PROVIDERS: PCP Family Medicine; Referring Provider Family Medicine; Visit Provider Nurse Practitioner Family
DX: D50.9 Iron deficiency anemia, unspecified (principal)
CPT/HCPCS: 36415; 83540; 83550; 85025

== ENCOUNTER → 2022-06-27 | Outpatient (CLI) | payer OTHER, SELFPAY ==
[2022-06-27 12:08] LABS: Absolute Neutrophil Count 2.6 X10^3/uL (2.0-7.7); Basophil# 0.02 X10^3/uL; Basophil% 0.4 % (0-1); Eosinophil# 0.12 X10^3/uL; Eosinophils% 2.6 % (0-5); Hematocrit 33.8 % (37-47); Hemoglobin 10.5 g/dL (12.0-15.0); Lymphocyte % 30.4 % (19-41); Mean Corp Hgb Conc 31.1 g/dL (32-36); Mean Corpuscular Hgb 24.9 pg (27.0-32.0); Mean Corpuscular Volume 80.3 fL (81-99); Mean Platelet Vol. 10.9 fl (6.2-12.0); Monocyte# 0.42 X10^3/uL; Monocyte% 9.1 % (0-10); NRBC Flagged by Analyzer 0 % (0-5); Neutrophil # 2.64 X10^3/uL (2.7-7.7); Neutrophil % 57.3 % (47-70); Platelet Count 333 K/mm3 (150-450); RBC Distribution Width CV 16.9 % (11.6-14.6); Red Blood Count 4.21 M/mm3 (4.2-5.4); White Blood Count 4.6 K/mm3 (4.4-11.0)
[2022-06-27 12:26] LABS: ALB/GLOB Ratio 1.1 RATIO (0.9-2.4); AST(SGOT) 13 U/L (15-37); Alanine Aminotransfer ALT/SGPT 18 U/L (13-56); Albumin, Serum 3.7 g/dL (3.2-5.0); Alkaline Phosphatase 77 U/L (45-117); Anion Gap 7 (5-15); BUN 12 mg/dL (7-18); BUN/Creat Ratio 18.3 RATIO (10-20); Calcium,Total 8.7 mg/dL (8.5-10.1); Chloride 105 mmol/L (98-107); Cholesterol 206 mg/dL (200); Creatinine, Serum 0.65 mg/dL (0.55-1.02); EST Glomerular Filtration Rate 103 mL/min (>60); Est Glom Filt Rate - Afr Amer 124 mL/min (>60); Ferritin 5 ng/mL (8-252); Globulin 3.5 g/dL (2.2-4.2); Glucose 95 mg/dL (74-106); High Density Lipoprotein 63 mg/dL; Iron 20 ug/dL (50-170); Iron Binding Capacity,Total 388 ug/dL (250-450); Potassium 3.8 mmol/L (3.5-5.1); Protein, Total 7.2 g/dL (6.4-8.2); Sodium Level 139 mmol/L (136-145); Triglycerides 72 mg/dL; Very Low Density Lipoprotein 14 mg/dL (5-40)
== END | disposition home or self-care (01) ==
LOC: MFPLAB 10:47
PROVIDERS: PCP Family Medicine; Referring Provider Family Medicine; Visit Provider Family Medicine
DX: D50.9 Iron deficiency anemia, unspecified (principal); E66.9 Obesity, unspecified
CPT/HCPCS: 36415; 80053; 80061; 82728; 83540; 83550; 85025

== ENCOUNTER → 2022-09-12 | Outpatient (CLI) | payer OTHER, SELFPAY ==
[2022-09-12 10:23] LABS: Hematocrit 40.3 % (37-47); Hemoglobin 13.6 g/dL (12.0-15.0); Mean Corp Hgb Conc 33.7 g/dL (32-36); Mean Corpuscular Hgb 29.2 pg (27.0-32.0); Mean Corpuscular Volume 86.5 fL (81-99); Mean Platelet Vol. 10.5 fl (6.2-12.0); Platelet Count 344 K/mm3 (150-450); RBC Distribution Width CV 17.6 % (11.6-14.6); RBC Distribution Width SD 55.3 fl (35.1-43.9); Red Blood Count 4.66 M/mm3 (4.2-5.4); White Blood Count 5.6 K/mm3 (4.4-11.0)
[2022-09-12 10:55] LABS: Estradiol 222.2 pg/mL; Follicle Stimulating Hormone 11.3 mIU/mL; Free T3 2.7 pg/mL (2.18-3.98); Luteinizing Hormone 11.4 mIU/mL; Prolactin 20.5 ng/mL; T4 Free Direct 1.07 ng/dL (0.76-1.46); Thyroid Stim Hormone (TSH) 0.89 uIU/mL (0.358-3.74)
[2022-09-18 15:14] LABS: 17-Hydroxyprogesterone 52 ng/dL (.)
== END | disposition home or self-care (01) ==
LOC: WOBLAB 09:42
PROVIDERS: PCP Family Medicine; Visit Provider Student in an Organized Health Care Education/Training Program
DX: N93.9 Abnormal uterine and vaginal bleeding, unspecified (principal)
CPT/HCPCS: 36415; 82670; 83001; 83002; 83498; 84146; 84439; 84443; 84481; 85027

== ENCOUNTER → 2022-09-28 | Outpatient (CLI) | payer OTHER, SELFPAY ==
--- NOTE | 2022-09-28 | EMB_PTH ---
PATIENT: ARAUZPRATIMA Grijalva LOC: [facility] U#:[id number] AGE/SX: 47/F ROOM: RE09/28/[address]: Dr. Pratima Arauz DO : 1975 BED: DIS: 09/28/2022 SPEC #: [id number] RECD: 09/28/22 14:16 STATUS: VASU CHRISTIANA #: [id number] JUANY: 09/28/22 00:[address]: Pratima Arauz DEPT: SURGICAL PATHOLOGY RECD BY: Jameson Kline ENTERED: 09/28/22 14:17 SP TYPE: ENDOM BX/C YOHANA DR: Dr. Manny Noel MD Tissues: Endometrium, NOS Procedures: Surgery Specimen Level IV HEADER OPERATION: Endometrial biopsy PRE-OP DIAGNOSIS: Abnormal uterine bleeding TISSUE SUBMITTED: Endometrial biopsy MICROSCOPIC DIAGNOSIS Endometrium, biopsy: Focal simple hyperplasia without atypia in background of perimenstrual endometrium. AM:lukas 10/01/2022 COMMENT Case has been reviewed in consultation with Dr. Jane who concurs with the above diagnosis. IDC:SJ MICROSCOPIC DESCRIPTION Slides are reviewed. GROSS DESCRIPTION Received in fixative is one container labeled with the patient's name and designated endometrial biopsy. The specimen consists of multiple fragments of hemorrhagic soft tissue that in aggregate measure 3 x 2.5 x 0.3 cm. The specimen is totally submitted in one cassette. / GUERO:lukas 09/28/2022 TC:5 CPT: 35296
== END | disposition home or self-care (01) ==
PROVIDERS: PCP Family Medicine; Visit Provider Student in an Organized Health Care Education/Training Program
DX: N85.01 Benign endometrial hyperplasia (principal)
CPT/HCPCS: 88305

== ENCOUNTER → 2023-01-14 | Outpatient (CLI) | payer OTHER, SELFPAY ==
[2022-11-05 12:05] LABS: Hematocrit 36.8 % (37-47); Hemoglobin 12.2 g/dL (12.0-15.0); Mean Corp Hgb Conc 33.2 g/dL (32-36); Mean Corpuscular Hgb 30.9 pg (27.0-32.0); Mean Corpuscular Volume 93.2 fL (81-99); Mean Platelet Vol. 10.6 fl (6.2-12.0); Platelet Count 316 K/mm3 (150-450); RBC Distribution Width SD 51.7 fl (35.1-43.9); Red Blood Count 3.95 M/mm3 (4.2-5.4); White Blood Count 5.8 K/mm3 (4.4-11.0)
--- NOTE | 2022-11-08 07:22 | HP.PCM.OB_ITS ---
History and Physical Date of Admission: 11/08/22 HPI: 47-year-old female with abnormal uterine bleeding and simple hyperplasia on endometrial biopsy plan for hysteroscopy, dilation and curettage.? Denies headache or vision changes, chest pain or shortness of breath, nausea or vomiting, fevers or chills, diarrhea or constipation. 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 Benign endometrial hyperplasia 2. Obesity Surgical history: 1. Cystoscopy 2. section x2 3. Tubal ligation at time of Medications: 1. Iron 2. Glucosamine Allergies: No known drug allergies Social history: Denies tobacco, alcohol, drug use Family history: Noncontributory.? Review of system: Negative otherwise stated above Physical exam Vitals pending General: No acute distress HEENT: Normal cephalic/atraumatic, PERRLA Cardiac: Regular rate and rhythm no murmurs rubs or gallops Respiratory: Clear to auscultation bilaterally Abdomen: Soft, nontender, nondistended.? Fibroid uterus palpable Extremities: No edema Musculoskeletal: Strength 5 out of 5 throughout extremities Neurologic: Cranial nerves II through XII grossly intact, no focal deficits Assessment/plan: 47-year-old female with abnormal uterine bleeding and simple hyperplasia on endometrial biopsy plan for hysteroscopy, dilation and curettage All risk, benefits, alternatives discussed with the patient.? Risk include but are not limited to: Risk of bleeding to the point transfusion, infection, injury to surrounding tissue (bowel/bladder/major abdominal vessels), VTE, ICU admission.? Patient were consented.
[2022-11-08] MEDS: Lactated Ringers 1,000 ML 125 ML IV (11:42)
[2022-11-08 11:44] VITALS: BP 140/82; PULSE 70; RESP 18; TEMP 36.8; O2SAT 99; BMI 41.8
--- NOTE | 2022-11-08 13:30 | EMB_PTH ---
PATIENT: PRATIMA ARAUZ LOC: [facility] U#:[id number] AGE/SX: 47/F ROOM: RE01/14/[address]: Dr. Pratima Arauz DO : 1975 BED: DIS: 01/14/2023 SPEC #: [id number] RECD: 11/08/22 16:57 STATUS: VASU CHRISTIANA #: [id number] JUANY: 11/08/22 13:[address]: Pratima Arauz DEPT: SURGICAL PATHOLOGY RECD BY: Cassie Kaur ENTERED: 11/09/22 09:43 SP TYPE: ENDOM BX/C YOHANA DR: Dr. Manny Noel MD Tissues: Endometrium, NOS Procedures: Surgery Specimen Level IV HEADER OPERATION: Hysteroscopy, dilation and curettage PRE-OP DIAGNOSIS: Benign endometrial hyperplasia TISSUE SUBMITTED: Endometrial curettings MICROSCOPIC DIAGNOSIS Endometrium, curettings: Simple and complex hyperplasia with focal cytologic atypia. AM:lukas 11/12/2022 COMMENT Case has been reviewed in consultation with Dr. Jane who concurs with the above diagnosis. IDC:SJ MICROSCOPIC DESCRIPTION Slides are reviewed. GROSS DESCRIPTION Received in fixative is one container labeled with the patient's name and designated endometrial curettings. The specimen consists of multiple fragments of hemorrhagic soft tissue that in aggregate measure 4 x 3 x 0.3 cm. The entire specimen is submitted in two cassettes. / GUERO:lukas 11/09/2022 TC:? CPT: 76991
--- NOTE | 2022-11-08 13:40 | OP.PCM_ITS ---
Report of Operation Date of Procedure: 11/08/22 Pre-Operative Diagnosis: Abnormal uterine bleeding, benign endometrial hyperpla melissa Post-Operative Diagnosis: Abnormal uterine bleeding, benign endometrial hyperplasia Surgery/Procedure Performed:: Hysteroscopy, dilation and curettage Description of Surgical Findings:: Normal-appearing external genitalia. Moderate uterine descensus. Thickened endometrial lining. Type of Anesthesia: MAC Specimen's removed: Endometrial curettings Estimated Blood Loss (mL): 5 cc Fluids Replaced: 400cc Description of Procedure: Indications/risk/benefits: 47-year-old female with abnormal uterine bleeding and simple hyperplasia on endometrial biopsy plan for hysteroscopy, dilation and curettage All risk, benefits, alternatives discussed with the patient.? Risk include but are not limited to: Risk of bleeding to the point transfusion, infection, injury to surrounding tissue (bowel/bladder/major abdominal vessels/uterine perforation), VTE, ICU admission.? Patient were consented. Procedure: Patient taken the operating room and MAC anesthesia induced. Patient placed in the dorsal lithotomy position and prepped and draped in usual sterile fashion. Weighted speculum placed in the posterior vagina and Metcalf retractor used to visualize cervix. Anterior lip of the cervix grasped with single-tooth tenaculum. Cervix was noted to be dilated 1 cm. Hysteroscope placed through the cervical canal and inspection of the endometrial cavity was completed with findings noted above. Hysteroscope removed. Curettage completed in 360 degree manner. Single-tooth tenaculum removed, cervix hemostatic. Weighted speculum removed. At the end the procedure all needle, lap, sponge counts were correct. UOP: none measured Complications None
--- NOTE | 2022-11-08 13:43 | DCINST_ITS ---
Discharge Instructions Diet Discharge Diet: No restrictions Activity Discharge Activity: Return to Normal Activity and May Shower May resume sexual activity in: 2 weeks Weight Bearing Status: Weight bearing as tolerated Lifting Restrictions: None Dressing / Incision Call your doctor if you observe: Fever of 101 or Higher, Change in Color, Inability to urinate, Using more than 1 pad per hour, Shortness of breath, Dizziness, Swelling in the ankles, Chest pain and Calf discomfort Follow Up Care Please Follow Up With: Pratima Chiu DO When: 1-2 week postoperative visit Test Results: Test results from this visit will be discussed in further detail at your follow- up appointment, if applicable. Discharge Plan Admission Primary Reason for Your Visit: Dilation and Curettage Attending Provider: Pratima Chiu Primary Care Provider: Manny Noel Discharge Orders/Prescriptions Prescriptions: No Action ferrous sulfate [iron] 325 mg (65 mg iron) Tablet 325 mg PO BID Referrals / Follow Up: Manny Noel MD [Primary Care Provider] - Disposition Disposition (needs filled in before D/C Order can be placed): Home, Self Care
[2022-11-08 13:47] VITALS: BP 120/80; BP 140/82; PULSE 75; RESP 16; TEMP 37.1; O2SAT 93
[2022-11-08 13:50] VITALS: BP 121/79; BP 140/82; PULSE 67; RESP 16; O2SAT 94
[2022-11-08 13:55] VITALS: BP 122/72; BP 140/82; PULSE 69; RESP 16; O2SAT 93
[2022-11-08 14:00] VITALS: BP 121/77; BP 140/82; PULSE 71; RESP 16; TEMP 36.7; O2SAT 93
[2022-11-08 15:04] VITALS: BP 140/82; BP 144/85; PULSE 70; RESP 16; TEMP 36.2; O2SAT 96
[2023-01-14 11:50] LABS: Hemoglobin 12.8 g/dL (12.0-15.0); Mean Corp Hgb Conc 33.7 g/dL (32-36); Mean Corpuscular Hgb 31.5 pg (27.0-32.0); Mean Corpuscular Volume 93.6 fL (81-99); Mean Platelet Vol. 10.7 fl (6.2-12.0); Platelet Count 344 K/mm3 (150-450); RBC Distribution Width CV 14.1 % (11.6-14.6); RBC Distribution Width SD 48.3 fl (35.1-43.9); Red Blood Count 4.06 M/mm3 (4.2-5.4); White Blood Count 6.6 K/mm3 (4.4-11.0)
[2023-01-14 12:31] LABS: Magnesium 2.1 mg/dL (1.6-2.6)
== END | disposition home or self-care (01) ==
LOC: SDC 11-08 11:12 → AC 11-08 11:12 → WOBLAB 10:38
PROVIDERS: Anesthesiology; PCP Family Medicine; Referring Provider Student in an Organized Health Care Education/Training Program; Visit Provider Student in an Organized Health Care Education/Training Program
PROC: 0UDB8ZZ Extraction of Endometrium, Via Natural or Artificial Opening Endoscopic (ICD-10-PCS; CPT 58558; principal; 2022-11-08 13:20)
DX: N85.01 Benign endometrial hyperplasia (principal); N93.9 Abnormal uterine and vaginal bleeding, unspecified; E61.1 Iron deficiency; Z79.899 Other long term (current) drug therapy
CPT/HCPCS: 58558; 00952; 36415; 83735; 85027; 86850; 86900; 86901; 88305; J7120; J2405

== ENCOUNTER → 2023-01-14 | Outpatient (CLI) | payer OTHER, SELFPAY | END | disposition home or self-care (01) | LOC: WOBLAB 02-11 10:26 | PROVIDERS: PCP Family Medicine; Referring Provider Student in an Organized Health Care Education/Training Program; Visit Provider Student in an Organized Health Care Education/Training Program | DX: Z01.818 Encounter for other preprocedural examination (principal) | CPT/HCPCS: 83735; 85027; 86850; 86900; 86901 ==

== ENCOUNTER 2023-01-17 13:33 | Inpatient (IN) | payer OTHER, SELFPAY ==
[2023-01-17] VITALS (11 sets, daily range): BP systolic 114–146; BP diastolic 64–88; PULSE 60–104; RESP 16–24; TEMP 36.1–37; O2SAT 92–100; BMI 42.7
--- NOTE | 2023-01-17 | HYST_PTH ---
PATIENT: DAVONTEPRATIMA Grijalva LOC: MS3 U#:[id number] AGE/SX: 47/F ROOM: [facility] [place]: Dr. Pratima Chiu DO : 1975 BED: 1 DIS: 01/18/2023 SPEC #: [id number] RECD: 01/17/23 14:14 STATUS: VASU RENina #: [id number] JUANY: 01/17/23 00:[address]: Pratima Chiu DEPT: SURGICAL PATHOLOGY RECD BY: Jameson Kline ENTERED: 01/18/23 10:12 SP TYPE: HYSTERECT OTHR DR: Dr. Manny Noel MD Tissues: Uterus, NOS Procedures: Surgery Specimen Level V HEADER OPERATION: ERAS, total abdominal hysterectomy, bilateral salpingectomy, cysto PRE-OP DIAGNOSIS: Benign endometrial hyperplasia TISSUE SUBMITTED: Uterus, cervix, bilateral fallopian tubes MICROSCOPIC DIAGNOSIS Uterus, hysterectomy: Cervix ? focal chronic inflammation. Endometrium ? simple and complex hyperplasia with focal atypia, excised. Myometrium ? leiomyomas and focal superficial adenomyosis. Right and left fallopian tubes - No pathologic change. AM:lukas 01/21/2023 COMMENT Reference is made to the patient's previous endometrial curettings ([id number]) in which simple and complex hyperplasia with focal cytologic atypia was identified. The atypia I the present specimen is completely excised. Case has been reviewed in consultation with Dr. Jane who concurs with the above diagnosis. IDC:GUERO MICROSCOPIC DESCRIPTION Slides are reviewed. GROSS DESCRIPTION Received in fixative is one container labeled with the patient's name and designated uterus. The specimen consists of a uterus received in six fragments ranging in size from 2.0 to 11.0 cm and in aggregate weighing 381 gm. The presumed endocervix measuring 3.0 cm in length and is grossly unremarkable. Present free in the container is a rubbery fragment of esquivel-white tissue resembling leiomyoma and measuring 3.2 cm in greatest dimension. Also present free in the container are two fallopian tubes with fimbrial ends with average lengths of 5.0 cm and average diameters of 0.6 cm. Filshie-type clip is present in one fallopian tube. The triangular endometrial cavity measures 5.5 x 4.5 cm. The velvety, glistening light esquivel endometrium measures up to 0.2 cm in thickness. The myometrium measures 4.0 cm in average thickness and is distorted by multiple spherical rubbery nodules ranging in size from 1.0 to 4.0 cm. The cut surfaces reveal whorled appearances without areas of cyst formation or necrosis. Tire Service Technician sections are submitted in 12 cassettes as follows: 1 & 2 - cervix and endocervix, 3-5 - anterior endometrium and adjacent myometrium, 6 & 7 - posterior endometrium and adjacent myometrium, 8 - largest myometrial mass, 9 - second largest myometrial mass, 10 - third largest myometrial mass (free in container), 11 - one fallopian tube, 12 - the other fallopian tube. Note, the entire endometrium is submitted for microscopic examination. / AM:lukas 01/18/2023 TC:1 CPT: 29586
[2023-01-17 07:02] LABS: Internal QC Validated? YES +Cl - CLEAR BKGD; Pregnancy, Urine Negative Negative
[2023-01-17] MEDS: Lactated Ringers 1,000 ML 40 ML IV (07:08)
[2023-01-17] MEDS: Magnesium 1 GM over 15 mins IV (07:08)
[2023-01-17] MEDS: Gabapentin 600 MG Tablet PO (07:09)
[2023-01-17] MEDS: Acetaminophen 500 MG Tablet 1000 MG PO ×3 (07:09→23:53)
[2023-01-17] MEDS: dexAMETHasone 10 MG/ML Vial 8 MG IV (07:10)
--- NOTE | 2023-01-17 07:16 | HP.PCM.OB_ITS ---
History and Physical Date of Admission: 01/17/23 HPI: 47-year-old female with benign endometrial hyperplasia plan for robotic assisted total laparoscopic hysterectomy, bilateral salpingectomy, cystoscopy. Denies headache or vision changes, chest pain or shortness of breath, nausea or vomiting, fevers or chills, diarrhea or constipation. ACADEMIC RECORDS SPECIALIST history: G4, P4 Medical history: 1. Anemia Surgical history: 1. section 2. Hysteroscopy, D&C 3. Tubal ligation Medications: 1. Iron 2. Medroxyprogesterone Social history: Denies tobacco, alcohol, drug use Family history: Denies contributing family history Allergies: No known drug allergies Review of system: Negative otherwise stated above Physical exam Vital signs pending General: No acute distress HEENT: Normal cephalic/atraumatic, PERRLA Cardiac: Regular rate and rhythm, no murmurs/rubs/gallops Respiratory: No increased effort, clear to auscultation bilaterally Abdomen: Soft, nontender, nondistended Extremities: No edema Neurologic: Cranial nerves II through XII grossly intact, no focal deficits Musculoskeletal: Strength 5 out of 5 throughout extremities Assessment/plan: 47-year-old female with benign endometrial hyperplasia plan for robotic assisted total laparoscopic hysterectomy, bilateral salpingectomy, cystoscopy All risk, benefits, alternatives discussed with patient. Risk include but are not limited to: Risk of bleeding to the point of transfusion, infection, injury to surrounding tissue including bowel/bladder/major abdominal vessels, VTE, ICU admission. Patient aware and consented.
[2023-01-17 07:46] LABS: Bedside Glucose 125 mg/dL (74-106)
--- NOTE | 2023-01-17 08:45 | DCINST_ITS ---
Discharge Instructions Diet Discharge Diet: No restrictions Activity Discharge Activity: Return to Normal Activity and May Shower May resume sexual activity in: 6 weeks Weight Bearing Status: Weight bearing as tolerated Lifting Restrictions: No greater than 10 pounds Dressing / Incision Call your doctor if your incision/area has: Continuous Slow Oozing, Increased Redness and Foul Smelling Discharge Call your doctor if you observe: Fever of 101 or Higher, Inability to urinate, Inability to have a bowel movement, Using more than 1 pad per hour, Shortness of breath, Swelling in the ankles, Chest pain and Uncontrolled pain Cleanse incision/area with: Soap & Water and Keep Dressing Clean & Dry Follow Up Care Please Follow Up With: Pratima Chiu DO When: 2 weeks post operative appointment Test Results: Test results from this visit will be discussed in further detail at your follow- up appointment, if applicable. Discharge Plan Admission Admit Date/Time: 01/17/23 13:33 Primary Reason for Your Visit: Hysterectomy Attending Provider: Pratima Chiu Primary Care Provider: Manny Noel Discharge Orders/Prescriptions Prescriptions: New oxycodone 5 mg tablet 5 mg PO Q6H PRN (Reason: pain (scale score 7-10)) 5 Days Qty: 24 0RF Continued ferrous sulfate [iron] 325 mg (65 mg iron) Tablet 325 mg PO BID Discontinued medroxyprogesterone 10 mg Tablet 20 mg PO DAILY Referrals / Follow Up: Manny Noel MD [Primary Care Provider] - Disposition Disposition (needs filled in before D/C Order can be placed): Home, Self Care
--- NOTE | 2023-01-17 08:45 | PCM.OPRPT ---
Report of Operation Date of Procedure: 01/17/23 Pre-Operative Diagnosis: Benign endometrial hyperplasia Post-Operative Diagnosis: Benign endometrial hyperplasia Surgery/Procedure Performed:: Robotic assisted lysis of adhesions. Total abdominal hysterectomy, bilateral salpingectomy, cystoscopy. Description of Surgical Findings:: Enlarged fibroid uterus. Extensive adhesions of omentum to the anterior abdominal wall and uterus. Adhesions of the colon to the left pelvis, uterus. Adhesions of the left fallopian tube to the left ovary. Adhesions of the left tube and ovary complex to the pelvic sidewall and colon. Normal-appearing bilateral ovaries. Type of Anesthesia: General Specimen's removed: Uterus and cervix, bilateral fallopian tubes Estimated Blood Loss (mL): 200 cc Fluids Replaced: 2500cc Description of Procedure: Indication/risk/benefits: 47-year-old female with benign endometrial hyperplasia plan for robotic assisted total laparoscopic hysterectomy, bilateral salpingectomy, cystoscopy All risk, benefits, alternatives discussed with patient. Risk include but are not limited to: Risk of bleeding to the point of transfusion, infection, injury to surrounding tissue including bowel/bladder/major abdominal vessels, VTE, ICU admission. Patient aware and consented. Procedure: Patient taken to the operating room and placed under general anesthesia. Patient placed in the dorsal lithotomy position and prepped and draped in the usual sterile fashion. Vuong catheter placed. Weighted speculum placed in the vagina and a right angle retractor placed in the anterior, anterior lip of the cervix grasped single-tooth tenaculum. Cervix sequentially dilated and uterus sounded to 10 cm. Decnjt-ci-[id number] suture placed at the 3 and 9 o'clock position on the cervix. 3 cm manipulator placed. Weighted speculum and retractor removed. Gloves were changed and attention turned to the anterior abdominal wall. Vertical supraumbilical incision made with scalpel and trocar placed under direct visualization. Abdomen insufflated. Abdomen inspected with findings noted above. Right and left lower quadrant trocars placed under direct visualization. Trocar placed at the Daniels's point. Supraumbilical port replaced with robotic trocar. Robot docked. Adhesiolysis started. Omental adhesions to the anterior abdominal wall lysed sharply. Extensive dissection of adhesions completed along the anterior uterus, freeing the omentum from the left anterior uterus. Thin adhesions noted adhesive in the left colon to the uterus as well as the tubo-ovarian complex. Adhesions lysed sharply. This allowed colon to fall away from the uterus. Dissection of the vesicouterine peritoneum completed using sharp dissection. Area of denser adhesion was noted at the midline. After extensive adhesiolysis, decision for open hysterectomy was made due to remaining bladder adhesions, and large size of the uterus making it difficult to see laterally and posteriorly laparoscopically. Discussed this with the patient's , who gave verbal consent. Robot was undocked, insufflation was stopped, trocars removed. Trocar sites were closed with subcuticular stitch and skin glue. Uterine manipulator was removed as was suture from cervix. Pfannenstiel skin incision made with scalpel and carried down through subcutaneous tissue. Fascia nicked on either side of the midline and extended bilaterally using Melo scissors. Dense fascial adhesions noted at midline. Merissa clamps grasped superior fascial edge which was tented up and underlying rectus muscles were dissected off bluntly and sharply. Merissa clamps moved to the inferior fascial edge which was tented up and underlying rectus muscles were dissected off in a similar fashion. Peritoneum grasped with 2 hemostats and peritoneum was entered with Metzenbaum scissors. Extended bluntly. Heber retractor was placed in direct contact with the fascia. Laps were used to retract away bowel. Further dissection of adhesions between the colon and left side of the uterus was completed, thus completing dissection of adhesions in this area. Right fallopian tube was grasped with Brooklyn clamp and removed using LigaSure device along mesosalpinx. Right round ligament was suture-ligated and incised with Bovie. Anterior leaf of the broad ligament was dissected with identification of the vesicouterine peritoneum, bladder flap was further dissected. Medial leaf of the broad ligament was dissected, identifying ureters. A window in the posterior leaf of the broad ligament was made underneath the utero-ovarian ligament. Utero ovarian ligament was coagulated and cut using LigaSure device. Uterine artery skeletonized using sharp and blunt dissection. Left round ligament suture-ligated and incised using Bovie. Dissection of the vesicouterine peritoneum completed on the left side towards midline. Adhesions lysed between the left fallopian tube and left ovary. The left fallopian tube grasped with Brooklyn clamp and removed along the mesosalpinx using the LigaSure device. Medial leaf of the broad ligament dissected and ureters identified. Window made in the posterior leaf of the broad ligament and utero-ovarian ligament coagulated and cut using LigaSure device. Left uterine artery skeletonized. Small anterior subserosal fibroid excised in order to aid in visualization of the anterior uterus and bladder. Myomectomy did not enter the endometrial cavity. Further dissection of the vesicouterine peritoneum completed, allowing the bladder to fall away from the anterior uterus and cervix. Left uterine arteries coagulated and cut perpendicular to the uterus and cervix. Right uterine arteries coagulated cut in a similar fashion. Bilateral uterine arteries coagulated and cut using LigaSure device in a parallel fashion. Right angle Zeppelin's placed at the corner of the cervicovaginal junction. Suture was placed at these clamps. Uterus and portion of cervix transected at mid cervix with Bovie to aid in visualization due to large fibroid uterus. An EEA sizer was placed in the vagina and the colpotomy made with Bovie anteriorly. Colpotomy was continued using scissors along the cervicovaginal junction. EEA sizer removed. Vagina was grasped with Allis clamps. Vagina closed with [id number] stitches. Posterior peritoneum was oozing, hemostatic with suture. Pelvis was irrigated. Hemostasis was noted. Floseal placed along the colpotomy. Laps removed. Heber retractor removed. Muscle reapproximated with horizontal mattress suture. Fascia closed with running stitch. Subcutaneous tissue reapproximated with suture. Skin closed with running subcuticular stitch. UOP: 350cc Re-dosed ancef 2g Complications None, Conversion to open hysterectomy.
[2023-01-17] MEDS: Cefazolin 2 GM in 0.9% Normal Saline 100 ML IV (09:11)
[2023-01-17] MEDS: Ketorolac 30 MG/ML Syringe IV (20:17)
[2023-01-17] MEDS: Docusate Sodium 100 MG Capsule PO (20:17)
[2023-01-17] MEDS: 0.9% Saline Lock 10 ML Syringe IV (20:21)
[2023-01-18] MEDS: Ketorolac 30 MG/ML Syringe IV ×2 (02:14→06:31)
[2023-01-18] MEDS: 0.9% Saline Lock 10 ML Syringe IV (02:16)
[2023-01-18 03:36] VITALS: BP 101/60; PULSE 85; RESP 20; TEMP 36.8; O2SAT 96
[2023-01-18] MEDS: Acetaminophen 500 MG Tablet 1000 MG PO (06:31)
[2023-01-18 06:39] VITALS: BP 100/62; PULSE 74; RESP 20; TEMP 36.4; O2SAT 95
[2023-01-18 06:46] LABS: Hematocrit 30.8 % (37-47); Hemoglobin 10.1 g/dL (12.0-15.0); Mean Corp Hgb Conc 32.8 g/dL (32-36); Mean Corpuscular Hgb 31.3 pg (27.0-32.0); Mean Corpuscular Volume 95.4 fL (81-99); Mean Platelet Vol. 10.3 fl (6.2-12.0); Platelet Count 303 K/mm3 (150-450); RBC Distribution Width CV 14.3 % (11.6-14.6); RBC Distribution Width SD 49.4 fl (35.1-43.9); Red Blood Count 3.23 M/mm3 (4.2-5.4); White Blood Count 14.4 K/mm3 (4.4-11.0)
[2023-01-18] MEDS: Ensure Plus High Protein 120 ML LIQUID PO (07:49)
--- NOTE | 2023-01-18 08:16 | PCM.PN.OB ---
Subjective Subjective Pain well controlled. Tolerating p.o. Objective Data Objective Data Vital Signs: Vital Signs Temp Pulse Resp BP Pulse Ox O2 Del Method O2 Flow Rate 97.6 F L 74 20 H 100/62 95 Room Air 2 01/18/23 06:39 01/18/23 06:39 01/18/23 06:39 01/18/23 06:39 01/18/23 06:39 01/18/23 06:39 01/17/23 15:36 Oxygen Flow Rate (L/min) 2 Oxygen Delivery Method Room Air Weight: 106.141 kg Body Mass Index (BMI) 42.7 Intake & Output: Intake and Output for Last 24 Hours 01/16/23 01/17/23 01/18/23 23:59 23:59 23:59 Intake Total 2289.08 / 2589.08 500 / 500 Output Total 550 / 1500 1700 / 1700 Balance 1739.08 / 1089.08 -1200 / -1200 Lab / Micro Data Attestation: I reviewed the patient's lab results. Result Diagrams: 01/18/23 06:25 Labs: Laboratory Results - last 24 hr 01/18/23 06:25: WBC 14.4 H, RBC 3.23 L, Hgb 10.1 L, Hct 30.8 L, MCV 95.4, MCH 31.3, MCHC 32.8, RDW Std Deviation 49.4 H, RDW Coeff of Bryant 14.3, Plt Count 303, MPV 10.3 Physical Exam Const alert, oriented x3 and no apparent distress Resp normal respiratory effort Cardio regular rate GI soft to palpation, non-tender and non-distended GI Narrative: Dressing clean and dry. Robotic incisions clean dry and intact. Minimally tender to palpation. Extremity no pedal edema Neuro moves all extremities, no focal motor deficits and no sensory deficits noted Assessment & Plan (1) Other acute postprocedural pain: PLAN: Postop day 1 status post robotic assisted lysis of adhesions, conversion to total abdominal hysterectomy, bilateral salpingectomy, cystoscopy, for enlarged fibroid uterus, benign hyperplasia. ?Pain controlled ? Tolerating p.o. ? Vuong catheter removed this morning ? CBC stable ? Discharge home today pending spontaneous voiding. Reviewed postoperative wound care and pain control. Reviewed surgical findings. (2) Leiomyoma of body of uterus:
[2023-01-18 08:18] VITALS: O2SAT 95
--- NOTE | 2023-01-18 09:25 | CASEMGMT ---
RN ELIA Assessment: Face to Face with pt for initial transition planning/care coordination assessment. RN CM introduced self and role at [facility], pt voices understanding and consents to assessment. Pt is A/O x4 and answers all questions appropriately at this time. Pt sitting up in chair with at bedside. Care providers, pharmacy, and demographics verified/updated. 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 Pt reports she is I in ADL's and denies concerns at home. Transportation: Pt drives self and denies concerns with transportation. DME/HHC/SNF: Pt has canes at home but does not use. Pt denies hx of HHC or SNF stays. Pt states no concerns with going home at time of dc. Pt states no further concerns/needs. CM to follow. Advised pt to ask CM if any further question/concerns/needs arise, voices understanding. Pt Goal: Home Plan: Home
[2023-01-18] MEDS: Docusate Sodium 100 MG Capsule PO (09:44)
[2023-01-18] MEDS: Enoxaparin 40 MG/0.4 ML Syringe SC (09:44)
[2023-01-18 11:15] VITALS: BP 107/69; PULSE 65; RESP 16; TEMP 36.7; O2SAT 96
--- NOTE | 2023-01-18 11:36 | PHA.DC.MC ---
Pharmacy Service has performed discharge medication reconciliation and counseling for this patient. The patient was counseled on the following discharge medications and changes in medications for homegoing were reviewed. 1. OXYCODONE The Reason for Use, instructions for use, and potential side effects were reviewed for all new medications. The patient's questions regarding all of their medications were answered. The patient was able to verbally demonstrate an understanding of their discharge medications. Home Medications ferrous sulfate 325 mg (65 mg iron) tablet (iron) 325 mg PO BID 11/05/22 oxycodone 5 mg tablet 5 mg PO Q6H PRN pain (scale score 7-10) 5 days #24 tabs 01/17/23 The patient's discharge medication list was reviewed for discrepancies and discrepancies were resolved.
== END 2023-01-18 11:40 | disposition home or self-care (01) | DRG 743 ==
LOC: SDC 14:58 → MS3 15:03
PROVIDERS: Anesthesiology; Admitting Provider Student in an Organized Health Care Education/Training Program; PCP Family Medicine; Referring Provider Student in an Organized Health Care Education/Training Program; Visit Provider Student in an Organized Health Care Education/Training Program
PROC: 0UT90ZZ Resection of Uterus, Open Approach (ICD-10-PCS; principal; 2023-01-17 08:30)
DX: N85.01 Benign endometrial hyperplasia (principal); D25.2 Subserosal leiomyoma of uterus; N73.6 Female pelvic peritoneal adhesions (postinfective); Z53.39 Other specified procedure converted to open procedure
CPT/HCPCS: 36415; 81025; 82962; 85027; 88307; 94668; 99252; J7120; A4216; G0463; J2405; J3475

== ENCOUNTER → 2023-03-25 | Outpatient (CLI) | payer OTHER, SELFPAY ==
--- NOTE | 2023-03-25 08:28 | BI_ITS ---
MAMMOGRAPHY - BILATERAL SCREENING REASON FOR EXAM: Female, 48 years old. Routine annual screening examination. PERTINENT HISTORY: Grandmother with breast cancer. Aunts with breast cancer. TECHNIQUE: Digital bilateral breast isabel (3D mammographic acquisition) in the CC and MLO projections. 2-D mediolateral oblique (MLO) and craniocaudad (CC) views of both breasts were obtained. CAD: Full Field Digital Mammography with Computer Added Detection was performed. COMPARISON: Comparison is made with prior examination dated September 20, 2020 and July 03, 2019. FINDINGS: Breast Composition: The breasts are heterogeneously dense, which may obscure small masses. There are no dominant masses or suspicious calcifications. Stable small benign-appearing bilateral axillary lymph nodes. No other significant abnormalities are identified. There has been no significant change since the prior study. BI/SCRN MAMM (CAD)W/ISABEL BILAT IMPRESSION: Stable bilateral screening mammogram. Yearly follow-up mammogram recommended. (A) ASSESSMENT CATEGORY: BIRADS Category 2: Benign. A letter regarding these results will be sent to the patient by the facility within 30 days. Approximately 10% of breast cancers are not detected by mammography. A normal mammogram should not delay biopsy of a clinically suspicious abnormality. [id number] Electronically Signed: Daniel Gross MD at 10:03 EDT ,
== END | disposition home or self-care (01) ==
LOC: OPBI 08:27
PROVIDERS: PCP Family Medicine; Referring Provider Student in an Organized Health Care Education/Training Program; Visit Provider Student in an Organized Health Care Education/Training Program
DX: Z12.31 Encounter for screening mammogram for malignant neoplasm of breast (principal); Z80.3 Family history of malignant neoplasm of breast
CPT/HCPCS: 77063; 77067

== ENCOUNTER → 2023-04-04 | Outpatient (CLI) | payer OTHER, SELFPAY ==
[2023-04-04 12:06] LABS: Absolute Lymphocyte Count 1.28 X10^3/uL (0.83-4.51); Absolute Neutrophil Count 4.2 X10^3/uL (2.0-7.7); Basophil# 0.03 X10^3/uL; Basophil% 0.5 % (0-1); Eosinophil# 0.18 X10^3/uL; Eosinophils% 2.8 % (0-5); Hemoglobin 13.8 g/dL (12.0-15.0); Lymphocyte # 1.28 X10^3/ul (0.83-4.51); Lymphocyte % 20.2 % (19-41); Mean Corp Hgb Conc 32.9 g/dL (32-36); Mean Corpuscular Hgb 30.6 pg (27.0-32.0); Mean Corpuscular Volume 93.1 fL (81-99); Mean Platelet Vol. 10.9 fl (6.2-12.0); Monocyte# 0.65 X10^3/uL; Monocyte% 10.3 % (0-10); NRBC Flagged by Analyzer 0 % (0-5); Neutrophil # 4.17 X10^3/uL (2.7-7.7); Neutrophil % 65.9 % (47-70); Platelet Count 313 K/mm3 (150-450); RBC Distribution Width CV 13.3 % (11.6-14.6); RBC Distribution Width SD 45.4 fl (35.1-43.9); Red Blood Count 4.51 M/mm3 (4.2-5.4); White Blood Count 6.3 K/mm3 (4.4-11.0)
[2023-04-04 12:29] LABS: Ferritin 30 ng/mL (8-252); Iron 75 ug/dL (50-170); Iron Binding Capacity,Total 319 ug/dL (250-450)
== END | disposition home or self-care (01) ==
LOC: MFPLAB 10:47
PROVIDERS: PCP Family Medicine; Visit Provider Family Medicine
DX: D50.9 Iron deficiency anemia, unspecified (principal)
CPT/HCPCS: 36415; 82728; 83540; 83550; 85025

== ENCOUNTER 2024-05-02 20:26 | Emergency (ER) | payer OTHER, SELFPAY ==
[2024-05-02 20:27] VITALS: BP 180/116; PULSE 99; RESP 16; TEMP 36.3; O2SAT 95
--- NOTE | 2024-05-02 20:41 | EDS_ITS ---
HPI History of Present Illness Chief Complaint: Abd Pain Detail of Chief Complaint: Abdominal pain Informant: patient Narrative Narrative: Patient presents the emergency department complaint of left lower abdomen pain that started an hour ago. Patient states that over the last several weeks she has had some intermittent bloating and upper abdomen discomfort but this is different. She denies urinary symptoms. Describes some nausea. No history of kidney stones but her siblings have had kidney stones. Patient states that she has had a hysterectomy but still has her ovaries. No other abdominal surgeries. No history of diverticulitis. Patient denies any fevers or chills or sweats. [facility] Medical History (Updated 05/02/24 @ 23:[address] Don Read, DO) Leiomyoma of body of uterus Leg cramps Heart murmur Wears glasses Alcohol use Low iron Non-smoker Shortness of breath on exertion History of echocardiogram History of rheumatic fever Home Medications ?Medication ?Instructions ?Recorded ?Last Taken ?Type ferrous sulfate 325 mg (65 mg 325 mg PO BID 11/05/22 11/07/22 History iron) tablet (iron) oxycodone 5 mg tablet 5 mg PO Q6H PRN pain (scale score 01/17/23 Unknown Rx 7-10) 5 days #24 tabs hydrocodone-acetaminophen 5-325mg 1 tab PO Q4H PRN PRN Pain 2 days 05/02/24 Unkn own Rx 5mg-325mg #15 TABLETS Allergy/AdvReac Type Severity Reaction Status Date / Time No Known Allergies Allergy Verified 05/02/24 20:27 Surgical History History of colonoscopy History of D&C Hx of tubal ligation Hx of ovarian cystectomy History of Social History Smoking Status: Never smoker ROS ROS ED Review of Systems ROS Unobtainable: other Constitutional Constitutional ED: Reports lethargy; Denies chills, fever(s), sweats or weight loss Eyes Eyes: Denies blurry vision, change in vision or diplopia ENT ENT ED: Denies rhinorrhea or sore throat Cardiovascular Cardiovascular: Denies chest pain, orthopnea or racing heartbeat Respiratory/Chest Respiratory/Chest: Denies cough, dyspnea, dyspnea on exertion, orthopnea or sputum Gastrointestinal Gastrointestinal: Reports abdominal pain and nausea; Denies diarrhea or vomiting Genitourinary Genitourinary ED: Denies dysuria, hematuria or urinary frequency Musculoskeletal Musculoskeletal: Denies arthralgias, back pain, myalgias or neck pain Integumentary Denies abscess, Abrasions or rash Neurologic Neurologic: Denies headache(s) or weakness Psychiatric Psychiatric: Denies anxiety, depression or suicidal thoughts Endocrine Endocrinology: Denies polydipsia, polyphagia or polyuria Hematologic/Lymphatic Hematologic/Lymphatic: Denies easy bleeding, easy bruising or lymphadenopathy Allergic/Immunologic Allergic/Immunologic ED: Denies mouth swelling, tongue swelling or urticaria EXAM Physical Exam Const Vital Signs: 05/02/24 20:27 05/02/24 21:00 05/02/24 23:00 Temperature 97.3 F L Temperature Source Temporal Pulse Rate 99 83 69 Respiratory Rate 16 20 H 17 Blood Pressure 180/116 H 136/86 H 156/103 H Blood Pressure Mean 137 102 120 Pulse Ox 95 96 97 Oxygen Delivery Method Room Air Room Air Room Air Positive well nourished and well developed General Appearance ED: well developed and NAD HEENT Reports TM's clear and moist mucous membranes normocephalic and atraumatic; Negative for trauma or tenderness Tympanic Membrane ED: Yes TM's clear Eyes PERRL and EOMs intact bilaterally General Eye ED: Negative for pale conjunctiva or scleral icterus Neck no lymphadenopathy, supple and no JVD General: Negative for tenderness Chest Wall inspection of chest normal and palpation of chest normal Chest: Negative for tenderness Resp normal respiratory effort and clear to auscultation bilaterally Effort and Inspection: Negative for respiratory distress or pain with movement Auscultation: Negative for rhonchi, wheezes or diminished lung sounds Cardio regular rate, regular rhythm, S1 normal heart sound, S2 normal heart sound and no murmurs Peripheral Pulses: pulses 2+ throughout GI normal to inspection, nondistended, normoactive bowel sounds, soft to palpation, non-tender and no masses GI Narrative: Patient with tenderness palpation over the left lower quadrant with some guarding. There is no rebound, rigidity, or pineal signs. No mass palpated. He does have mild CVA tenderness on the left Back/Spine no thoracic nor lumbar tenderness; Negative for no CVA tenderness General Back: CVA tenderness Extremity normal to inspection General Extremety ED: Negative for edema General Extremity: Negative for edema Neuro oriented x3, CN's II-XII intact bilaterally, no sensory deficits noted and gait normal Sensorium / Orientation: awake, alert, oriented to person, oriented to place and oriented to time Motor Exam: strength 5/5 throughout and strength abnormal Psych mental status grossly normal Skin no rashes or lesions noted and no wounds MDM MDM MDM Narrative Medical decision making narrative: Patient presents with abdominal pain left lower quadrant rather sudden onset. In the differential would be kidney stone or diverticulitis versus ovarian cyst or bowel obstruction or other acute process. IV line established. She was medicated with morphine and Zofran. CBC with differential obtained showed a white count of 9.9 with hemoglobin 13.6 and platelet count of 351. Chemistries were unremarkable. Urinalysis without signs of infection. I did obtain a CT scan of the abdomen pelvis without contrast that was read by radiology as a 24 cm complex cystic mass presumed ovarian origin most likely right ovary suspicious for malignancy. I did discuss findings with patient and her . Discussed case with SURGERY TEACHER on-call Dr. Barksdale who recommended outpatient follow-up this week with Dr. Winter's office. Patient will be given a prescription for [place] for pain. Advised return if worsening pain, fever, vom iting, or condition should worsen anyway Lab Data Attestation: I reviewed the patient's lab results. Labs: Laboratory Results - last 24 hr 05/02/24 05/02/24 20:55 21:45 WBC 9.9 RBC 4.53 Hgb 13.6 Hct 40.9 MCV 90.3 MCH 30.0 MCHC 33.3 RDW Std Deviation 43.6 RDW Coeff of [place] 13.2 Plt Count 351 MPV 10.2 Immature Gran % (Auto) 0.300 Neut % (Auto) 78.2 H Lymph % (Auto) 10.8 L [place] % (Auto) 8.7 Eos % (Auto) 1.7 Baso % (Auto) 0.3 Absolute Neuts (auto) 7.7 Absolute Lymphs (auto) 1.07 Nucleated RBC % 0 Sodium 136 Potassium 3.5 Chloride 104 Carbon Dioxide 25.0 Anion Gap 7 BUN 12 Creatinine 0.68 Est GFR (MDRD) Af Amer 118 Est GFR (MDRD) Non-Af 98 BUN/Creatinine Ratio 17.7 Glucose 131 H Calcium 9.3 Urine Color Yellow Urine Clarity Sl. Cloudy Urine pH 5.0 Ur Specific [place] 1.025 Urine Protein 30 H Urine Glucose (UA) Normal Urine Ketones 5 H Urine Occult Blood Negative Urine Nitrite Negative Urine Bilirubin Negative Urine Urobilinogen 1 H Ur Leukocyte Esterase 25 H Urine RBC 0 SEEN Urine WBC 0-5 SEEN Ur Squamous Epith Cells 10-25 SEEN Amorphous Sediment 1+ URATE Urine Bacteria 0 SEEN Urine Mucus 0 SEEN Radiography Diagnostic Testing: Clinical Impression(s) from Imaging Studies Abdomen/Pelvis CT 05/02/24 21:15 IMPRESSION: Large 24 cm complex cystic mass presumed ovarian in origin most likely right ovary, suspicious for ovarian malignancy. Small amount of free fluid. Right adrenal nodule, although low attenuation is new compared to prior, and therefore indeterminate. Single hypoattenuating liver lesion probably a cyst but is increased size compared to the prior. Further characterization of these additional lesions recommended with MRI to exclude metastatic disease. Electronically Signed: Supriya West MD at 22:33 EDT Reading Location ID and State: [address] [place] [address] Tel , Service support , Discharge Plan Triage Chief Complaint: Abd Pain ED Provider: Don Read Dx/Rx/DC Orders Clinical Impression: Lower abdominal pain, Mass of ovary Instructions: Cancer of the Ovary Dc, ED Tumor, Uncertain Cause Prescriptions: New hydrocodone-acetaminophen 5-325 mg tablet 1 tab PO Q4H PRN PRN (Reason: Pain) 2 Days Qty: 15 0RF No Action ferrous sulfate [iron] 325 mg (65 mg iron) Tablet 325 mg PO BID oxycodone 5 mg tablet 5 mg PO Q6H PRN (Reason: pain (scale score 7-10)) 5 Days Qty: 24 0RF Primary Care Provider: Manny Noel Referrals: Manny Noel MD [Primary Care Provider] - Ciara Winter MD [Med Staff - Active Staff] - 3-5 Days Print Language: Macedonian Disposition Disposition: Home, Self Care
[2024-05-02 21:00] VITALS: BP 136/86; PULSE 83; RESP 20; O2SAT 96
[2024-05-02 21:06] LABS: Absolute Lymphocyte Count 1.07 X10^3/uL (0.83-4.51); Absolute Neutrophil Count 7.7 X10^3/uL (2.0-7.7); Basophil# 0.03 X10^3/uL; Basophil% 0.3 % (0-1); Eosinophil# 0.17 X10^3/uL; Eosinophils% 1.7 % (0-5); Hematocrit 40.9 % (37-47); Hemoglobin 13.6 g/dL (12.0-15.0); Lymphocyte # 1.07 X10^3/ul (0.83-4.51); Lymphocyte % 10.8 % (19-41); Mean Corp Hgb Conc 33.3 g/dL (32-36); Mean Corpuscular Volume 90.3 fL (81-99); Mean Platelet Vol. 10.2 fl (6.2-12.0); Monocyte# 0.86 X10^3/uL; Monocyte% 8.7 % (0-10); NRBC Flagged by Analyzer 0 % (0-5); Neutrophil # 7.72 X10^3/uL (2.7-7.7); Neutrophil % 78.2 % (47-70); Platelet Count 351 K/mm3 (150-450); RBC Distribution Width CV 13.2 % (11.6-14.6); RBC Distribution Width SD 43.6 fl (35.1-43.9); Red Blood Count 4.53 M/mm3 (4.2-5.4); White Blood Count 9.9 K/mm3 (4.4-11.0)
[2024-05-02] MEDS: Ketorolac 15 MG/ML Vial IV (21:15)
[2024-05-02] MEDS: Morphine 4 MG/ML Syringe IV (21:15)
[2024-05-02] MEDS: Ondansetron 4 MG/2 ML Vial IV (21:15)
--- NOTE | 2024-05-02 21:15 | CT_ITS ---
EXAM: CT Abdomen And Pelvis W/O Contrast Injection HISTORY: Left lower quadrant abdominal pain TECHNIQUE: Routine protocol CT abdomen and pelvis. IV Contrast: None.. Oral contrast: None. RADIATION DOSAGE (If Supplied By Facility): CTDIvol = ( 23.63 ) mGy, DLP = ( 1411.08 ) mGycm Individualized dose optimization techniques were used for this CT. COMPARISON: CT abdomen and pelvis 01/06/2018. LIMITATIONS: None. FINDINGS: LOWER CHEST: Included lung bases are clear. Coronary artery calcifications are noted. LIVER: 1.5 cm low-attenuation structure in the left lobe is likely a cyst but larger compared to the prior.. GALLBLADDER AND BILIARY TREE: Grossly unremarkable. PANCREAS: Grossly unremarkable. SPLEEN: Grossly unremarkable. ADRENAL GLANDS: 2 cm low-attenuation nodule in the right adrenal was not present on the prior.. KIDNEYS AND URETERS: No calculi demonstrated. No hydronephrosis. PERITONEUM: No free air. Small amount of free fluid in the upper abdomen and pelvis. BOWEL: Bowel displaced by the large pelvic mass. No bowel obstruction. APPENDIX: Identified and unremarkable. No evidence of acute appendicitis. VESSELS: Abdominal aorta is normal caliber. REPRODUCTIVE ORGANS: Uterus is not identified. There is a large heterogeneous mass filling the pelvis extending into the upper abdomen, well above the umbilicus. Site of origin is uncertain but most likely right ovary, although difficult to assess due to the large size. Overall size 24 x 16.5 cm axial by 20 cm craniocaudal, contains low attenuation cystic structures and solid components. Similar cystic lesions were identified in bilateral adnexal regions on the prior CT, larger on the left on the prior. URINARY BLADDER: Grossly unremarkable. ABDOMINAL WALL: Unremarkable. BONES: No acute abnormalities. Degenerative changes in the spine. CT/Abdomen/Pelvis without Cont IMPRESSION: Large 24 cm complex cystic mass presumed ovarian in origin most likely right ovary, suspicious for ovarian malignancy. Small amount of free fluid. Right adrenal nodule, although low attenuation is new compared to prior, and therefore indeterminate. Single hypoattenuating liver lesion probably a cyst but is increased size compared to the prior. Further characterization of these additional lesions recommended with MRI to exclude metastatic disease. Electronically Signed: Supriya West MD at 22:33 EDT ,
[2024-05-02 21:22] LABS: Anion Gap 7 (5-15); BUN 12 mg/dL (7-18); BUN/Creat Ratio 17.7 RATIO (10-20); Calcium,Total 9.3 mg/dL (8.5-10.1); Chloride 104 mmol/L (98-107); Creatinine, Serum 0.68 mg/dL (0.55-1.02); EST Glomerular Filtration Rate 98 mL/min (>60); Est Glom Filt Rate - Afr Amer 118 mL/min (>60); Glucose 131 mg/dL (74-106); Potassium 3.5 mmol/L (3.5-5.1); Sodium Level 136 mmol/L (136-145)
[2024-05-02 21:49] LABS: Bacteria 0 SEEN /hpf (None Seen); Mucous, Urine 0 SEEN /hpf (<or=2+); Red Blood Cells-Urine 0 SEEN /hpf (0-5)
[2024-05-02 21:50] LABS: Color, Urine Yellow (Yellow); Glucose, Dipstick Normal (Normal); Ketone-Dipstick 5 mg/dl (Negative); Leukocyte Esterase-Dipstick 25 /ul (Negative); Nitrite-Dipstick Negative (Negative); Occult Blood-Urine Negative /ul (Negative); Protein-Dipstick 30 mg/dl (Negative); Specific Gravity, Urine 1.025 (1.002-1.030); Urine Bilirubin Dipstick Negative (Negative); Urine Clarity Sl. Cloudy (Clear); Urine Urobilinogen 1 mg/dl (Normal)
[2024-05-02 21:57] LABS: Amorphous Sediment 1+ URATE; Squamous Epithelial Cells - UA 10-25 SEEN /hpf (5-10); White Blood Cells 0-5 SEEN /hpf (0-5)
[2024-05-02] MEDS: 0.9% Normal Saline (1000mL) 1,000 ML 150 ML IV (22:45)
[2024-05-02 23:00] VITALS: BP 156/103; PULSE 69; RESP 17; O2SAT 97
[2024-05-02] MEDS: Acetaminophen 500 MG Tablet 1000 MG PO (23:14)
[2024-05-02 23:18] VITALS: BP 165/103; PULSE 70; RESP 16; TEMP 36.1; O2SAT 98
== END 2024-05-02 23:21 | disposition home or self-care (01) ==
PROVIDERS: Emergency Provider Emergency Medicine; PCP Family Medicine; Visit Provider Emergency Medicine
DX: R10.32 Left lower quadrant pain (principal); N83.8 Other noninflammatory disorders of ovary, fallopian tube and broad ligament
CPT/HCPCS: 74176; 80048; 81001; 85025; 86304; 96361; 96374; 96375; 99282; J7030; A4216; J2405

== ENCOUNTER → 2024-07-02 | Outpatient (CLI) | payer OTHER, SELFPAY ==
--- NOTE | 2024-07-02 13:36 | BI_ITS ---
MAMMOGRAPHY - BILATERAL SCREENING REASON FOR EXAM: Female, 49 years old. Routine annual screening examination. PERTINENT HISTORY: Grandmother with breast cancer. TECHNIQUE: Digital bilateral breast isabel (3D mammographic acquisition) in the CC and MLO projections. 2-D mediolateral oblique (MLO) and craniocaudad (CC) views of both breasts were obtained. CAD: Full Field Digital Mammography with Computer Added Detection was performed. COMPARISON: Comparison is made with prior study dated March 25, 2023 and September 20, 2020. FINDINGS: Breast Composition: The breasts are heterogeneously dense, which may obscure small masses. There are no dominant masses or suspicious calcifications. No other significant abnormalities are identified. There has been no significant change since the prior study. BI/SCRN MAMM (CAD)W/ISABEL BILAT IMPRESSION: Stable bilateral screening mammogram. Yearly follow-up mammogram recommended. (A) ASSESSMENT CATEGORY: BIRADS Category 1: Negative. A letter regarding these results will be sent to the patient by the facility within 30 days. Approximately 10% of breast cancers are not detected by mammography. A normal mammogram should not delay biopsy of a clinically suspicious abnormality. [id number] Electronically Signed: Daniel Gross MD at 15:32 EDT ,
== END | disposition home or self-care (01) ==
LOC: OPBI 13:36
PROVIDERS: PCP Family Medicine; Referring Provider Family Medicine; Visit Provider Family Medicine
DX: Z12.31 Encounter for screening mammogram for malignant neoplasm of breast (principal)
CPT/HCPCS: 77063; 77067

== ENCOUNTER 2024-09-22 11:24 | Day surgery (SDC) | payer OTHER, SELFPAY ==
[2024-09-22 11:49] VITALS: BP 125/80; PULSE 76; RESP 18; TEMP 36.6; O2SAT 96; BMI 41.8
--- NOTE | 2024-09-22 12:30 | COLBX_PTH ---
PATIENT: LINDA ARAUZ LOC: EN U#:[id number] AGE/SX: 49/F ROOM: RE09/22/[address]: Dr. Mg Welch DO : 1975 BED: DIS: 09/22/2024 SPEC #: [id number] RECD: 09/22/24 17:58 STATUS: VASU CHRISTIANA #: [id number] JUANY: 09/22/24 12:[address]: Mg Welch DEPT: SURGICAL PATHOLOGY RECD BY: Leida Quiroz ENTERED: 09/23/24 09:29 SP TYPE: COLON BX OTHR DR: Dr. Manny Noel MD Tissues: A - Rectum, NOS B - Cecum, NOS Procedures: Surgery Specimen Level IV HEADER OPERATION: Colonoscopy, polypectomy PRE-OP DIAGNOSIS: Encounter for screening for malignant neoplasm of colon TISSUE SUBMITTED: A- Rectal polyp biopsy, B- Cecum polyp MICROSCOPIC DIAGNOSIS A. Rectal polyp, biopsy: Tubular adenoma. B. Cecal polyp, biopsy: Hyperplastic polyp. AM. 09/24/2024 MICROSCOPIC DESCRIPTION Slides are reviewed. GROSS DESCRIPTION A. Received in fixative is one container labeled with the patient's name and designated Rectal polyp biopsy. The specimen consists of one irregular fragment of light esquivel soft tissue that measures 0.5 x 0.5 x 0.1 cm. The specimen is totally submitted in one cassette. B. Received in fixative is one container labeled with the patient's name and designated Cecal polyp. The specimen consists of one irregular fragment of light esquivel soft tissue that measures 1.2 x 0.5 x 0.5 cm. The specimen is bisected and totally submitted in one cassette. AM. 09/23/2024 TC:5 CPT:39888b7
--- NOTE | 2024-09-22 12:54 | PRE.ANES_ITS ---
ASA Classification* ASA Classification ASA Classification: 3 Assessment & Plan Anesthesia* Anesthesia Assessment Anesthesia Assessment: Discussed sedation and/or anesthesia options, risks, benefits, and alternatives with patient/parents/legal guardian/POA. Questions invited. The patient/parents/legal guardian/POA seems to understand and agrees to proceed with anesthesia plan. Reviewed the physical assessment, medical history, allergy history and patient home medications list prior to surgery/procedure/anesthetic and documented any changes. Performed airway and anesthesia risk assessments. Anesthesia Type Anesthesia Type: MAC History Source History Obtained from:: Patient and Chart Anesthesia Focused Assessment* Temperature: 97.8 F Pulse Rate: 76 Blood Pressure: 125/80 Respiratory Rate: 18 Pulse Ox: 96 Oxygen Delivery Method: Room Air Airway Assessment Mouth opens: >3 cm Mallampati Score: IV Teeth Condition: Missing (Couple missing molars.) Neck Range of motion (ROM): Full ROM Focused Labs Anesthesia Preop lab: CBC WBC 9.9 K/mm3 (4.4-11.0) 05/02/24 20:55 RBC 4.53 M/mm3 (4.2-5.4) 05/02/24 20:55 Hgb 13.6 g/dL (12.0-15.0) 05/02/24 20:55 Hct 40.9 % (37-47) 05/02/24 20:55 Plt Count 351 K/mm3 (150-450) 05/02/24 20:55 CHEMISTRY Potassium 3.5 mmol/L (3.5-5.1) 05/02/24 20:55 Sodium 136 mmol/L (136-145) 05/02/24 20:55 Magnesium 2.1 mg/dL (1.6-2.6) 01/14/23 10:38 BUN 12 mg/dL (7-18) 05/02/24 20:55 Creatinine 0.68 mg/dL (0.55-1.02) 05/02/24 20:55 Glucose 131 mg/dL (74-106) H 05/02/24 20:55 POC Glucose 125 mg/dL (74-106) H 01/17/23 06:59 TSH 0.89 uIU/mL (0.358-3.74) 09/12/22 09:42 COAG PT 13.4 SECONDS (11.7-14.9) 10/11/17 12:25 Urine Test Negative Negative 01/17/23 06:45 Pre-Assessment Diagnosis/Proposed Procedure Planned Operative Procedure(s): CSCOPE OA Anesthesia History Anesthesia History - paperboard box maker: Anesthesia History - paperboard box maker Hx Hospitalization No 09/18/24 09:21 Any Problems With Anesthesia No 09/18/24 09:21 Cholinesterase deficiency No 09/18/24 09:21 You/Your Family Experience No 09/18/24 09:21 fever (hyperthermia) with Relationship Recent Exposure to Contagious No 09/22/24 11:49 Disease Does patient have nerve No 09/18/24 09:21 stimulator Patient instructed to have device shut off --Does patient have Pacemaker No 09/22/24 11:49 or ICD? When Was Last Pacemaker Check QUESTION #4 FULL TEXT: You/Your Family Experience fever (hyperthermia) with Anesthesia Last Oral Intake Last Oral intake: Last Oral Intake NPO since 20:00 09/22/24 11:49 Meds taken in AM with sips of No 09/22/24 11:49 water? Meds patient instructed to take am of surgery Any additional information?: Yes NPO since: 08:20 (Patient finished prep at 8:20 AM.) PONV PONV - paperboard box maker: PONV - paperboard box maker Female Yes 09/18/24 09:21 HX of Motion Sickness No 09/18/24 09:21 HX of N/V After Surgery No 09/18/24 09:21 Non-Smoker Yes 09/18/24 09:21 Duration of Surgery greater No 09/18/24 09:21 than 60 minutes Number of Risk Factors 2 09/18/24 09:21 PONV Score Moderate Risk 09/18/24 09:21 Height & Weight Height & Weight: Anesthesia: Height & Weight Height 5 ft 3 in 09/22/24 11:49 Weight: 107 kg 09/22/24 11:49 Body Mass Index (BMI) 41.8 09/22/24 11:49 Respiratory Assessment Respiratory Assessment - paperboard box maker: Respiratory Tract Infection Hx - paperboard box maker Hx Respiratory Tract Infection No 09/18/24 09:21 STOP Sleep Apnea STOP Sleep Apnea - paperboard box maker: STOP Sleep Apnea - paperboard box maker Hx Hypertension No 09/18/24 09:21 Hx Sleep Apnea No 09/18/24 09:21 CPAP No 01/07/23 13:07 BIPAP Do you snore loudly (louder No 09/18/24 09:21 than talking or can be heard Do you often feel tired/ No 09/18/24 09:21 fatigued/ sleepy during daytime? Has anyone observed you stop No 09/18/24 09:21 breathing during sleep? STOP Results Negative 09/18/24 09:21 QUESTION #5 FULL TEXT : Do you snore loudly (louder than talking or can be heard through closed doors)? 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 Specify any problems Hx of Preganancy in last 3 No 09/18/24 09:21 Months Nurse Filling Out Transfusion DSCHRIBER 09/18/24 09:21 & Questions: Date: 09/18/24 09/18/24 09:21 Time: 09:22 09/18/24 09:21 Patient unable to answer at this time (ie. confused, unrespo /Reproduction History /Reproductive History - paperboard box maker: /Reproductive Hx- paperboard box maker Hx Now No 09/18/24 09:21 Gestational Age (in weeks): EDC: Hx Hx Para Hx Section SAB No 09/18/24 09:21 [facility] Medical History Low iron Leiomyoma of body of uterus Leg cramps Heart murmur Wears glasses Alcohol use Non-smoker Shortness of breath on exertion History of echocardiogram History of rheumatic fever Home Medications ?Medication ?Instructions ?Recorded ?Last Taken ?Type magnesium oxide 400 mg (241.3 mg 400 mg PO QDAY 07/21/24 Unknown History magnesium) tablet HERBAL BLEND 1 cap PO DAILY 09/18/24 Unknown History Allergy/AdvReac Type Severity Reaction Status Date / Time No Known Allergies Allergy Verified 09/22/24 11:48 Surgical History Hx of hysterectomy Hx of appendectomy History of colonoscopy History of D&C Hx of tubal ligation Hx of ovarian cystectomy History of Social History household members: spouse number of children: 2 current occupational status: employed Smoking Status: Never smoker alcohol intake: current alcohol intake frequency: holidays/special occasions only substance use type: does not use Review of Systems (Anesthesia) ROS Narrative System reviewed and no additional complaints, except as documented.
[2024-09-22 13:00] VITALS: BP 125/80; PULSE 76; RESP 18; TEMP 36.6; O2SAT 96
--- NOTE | 2024-09-22 13:21 | PCM.HP.STD ---
[facility] - General General Date of Admission: 09/22/24 Date of Service: 09/22/24 Chief Complaint: Screening colonoscopy HPI Narrative LINDA ARAUZ, is a 49 F who presents today for screening colonoscopy. She has a family history of colon issues including malignancy. She arrives here for screening colonoscopy. Last colonoscopy back in 2019. She is not have any abdominal pain, cramping, chest pain or shortness of breath. She does not take any medicines on daily basis. [facility] Medical History Low iron Leiomyoma of body of uterus Leg cramps Heart murmur Wears glasses Alcohol use Non-smoker Shortness of breath on exertion History of echocardiogram History of rheumatic fever Home Medications ?Medication ?Instructions ?Recorded ?Last Taken ?Type magnesium oxide 400 mg (241.3 mg 400 mg PO QDAY 07/21/24 Unknown History magnesium) tablet HERBAL BLEND 1 cap PO DAILY 09/18/24 Unknown History Allergy/AdvReac Type Severity Reaction Status Date / Time No Known Allergies Allergy Verified 09/22/24 11:48 Surgical History Hx of hysterectomy Hx of appendectomy History of colonoscopy History of D&C Hx of tubal ligation Hx of ovarian cystectomy History of Social History household members: spouse number of children: 2 current occupational status: employed Smoking Status: Never smoker alcohol intake: current alcohol intake frequency: holidays/special occasions only substance use type: does not use ROS Review of Systems ROS Unobtainable: other Constitutional Constitutional: Denies fatigue, fever(s), poor appetite, weight gain or weight loss ENT HEENT: Denies mouth lesions Cardiovascular Cardiovascular: Denies abdominal bloating, abdominal edema or abdominal pain Respiratory/Chest Respiratory/Chest: Denies change in mental status, change in phlegm color, chest congestion or chest tightness Gastrointestinal Gastrointestinal: Denies belching, bloating, change in bowel habits, change in stool character, chewing difficulty, coffee ground emesis, constipation, cramping, diarrhea, dyspepsia, dysphagia, early satiety, excessive flatus, fecal incontinence, heartburn, hematemesis, hematochezia, hemorrhoids, loose stools, melena, nausea, odynophagia, rectal bleeding, tenesmus, vomiting or weight changes Genitourinary Genitourinary: Denies abdominal discomfort, burning urination or itching Musculoskeletal Musculoskeletal: Reports as per HPI; Denies muscle weakness or myalgias Integumentary Integumentary: Denies jaundice Neurologic Neurologic: Denies lack of coordination or weakness Psychiatric Psychiatric: Denies confusion, depression, memory loss, mood swings, paranoia or suicidal ideation Endocrine Endocrinology: Denies systems reviewed and no addt'l complaints, except as documented Hematologic/Lymphatic Hematologic/Lymphatic: Denies anemia, easy bleeding, easy bruising or lymphadenopathy Allergic/Immunologic Allergic/Immunologic: Denies systems reviewed and no addt'l complaints, except as documented Vital Signs Vital Signs Vital Signs: 09/22/24 11:49 09/22/24 11:49 09/22/24 13:00 Temperature 97.8 F 97.8 F Temperature Source Temporal Pulse Rate 76 76 Respiratory Rate 18 18 Respiratory Pattern Normal Blood Pressure 125/80 H 125/80 H Blood Pressure Mean 95 Blood Pressure Source Monitor Blood Pressure Position Sitting Blood Pressure Location Left Arm Pulse Ox 96 96 Oxygen Delivery Method Room Air Room Air Weight Weight: 235 lb 14.314 oz Body Mass Index (BMI) 41.8 Physical Exam Const alert General Appearance: cooperative Orientation / Consciousness: oriented to person HEENT hearing grossly normal bilaterally Head and Scalp: normal to inspection Face and Sinus: face symmetric Nose: external nose normal Mouth: oral and palatal mucosa normal Eyes conjunctivae normal General Eye: normal appearance of both eyes Neck full ROM General: normal visual inspection Lymph Lymphatic: no lymphadenopathy noted Chest inspection of chest normal and palpation of chest normal Chest: symmetrical chest wall rise Resp normal respiratory effort Effort and Inspection: able to speak in complete sentences Cardio regular rate GI non-distended Percussion: normal to percussion Rectal Exam: deferred Neuro Speech: speech normal Gait (Neuro): normal gait Assessment & Plan Assessment/Plan (1) Encounter for screening for malignant neoplasm of colon: PLAN: She was explained alternatives including not withstanding bleeding, infection, sepsis, perforation, need for charge and . She we will have an ASA of 3.
[2024-09-22 13:50] VITALS: BP 114/73; BP 125/80; PULSE 66; RESP 16; TEMP 36.3; O2SAT 100
--- NOTE | 2024-09-22 13:51 | OP.CCLET_ITS ---
09/22/2024 Manny Noel [address] [place] [address] Re : Colonoscopy procedure for Pratima Chiu Dear Dr. Noel This procedure was performed on Sunday, September 22, 2024. My impressions and recommendations are as follows: Impressions : - One 5 mm polyp in the rectum, removed with a cold biopsy forceps. Resected and retrieved. - One 13 mm polyp in the cecum, removed with a hot snare. Resected and retrieved. Clip was placed. 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 Recommendations : - Repeat colonoscopy in 5 years for surveillance. - Continue present medications. My findings are described in the full procedure note, which is enclosed. If I can be of further assistance, please feel free to contact me at . Sincerely, Mg Friend, 09/22/2024 1:50:40 PM This report has been signed electronically.
--- NOTE | 2024-09-22 13:51 | OP.COLON_ITS ---
Patient Name: Pratima Chiu Procedure Date: 09/22/2024 1:22 PM Date of : 1975 Age: 49 Procedure: Colonoscopy Indications: Screening for colorectal malignant neoplasm Providers: Mg Welch DO Referring MD: Manny Noel Medicines: Monitored Anesthesia Care Patient Profile: This is a 49 year old female. Refer to note in patient chart for documentation of history and physical. Last Colonoscopy: 5 years ago. Complications: No immediate complications. Procedure: Pre-Anesthesia Assessment: - Prior to the procedure, a History and Physical was performed, and patient medications and allergies were reviewed. The patient is competent. The risks and benefits of the procedure and the sedation options and risks were discussed with the patient. All questions were answered and informed consent was obtained. Patient identification and proposed procedure were verified by the physician in the pre-procedure area. Mental Status Examination: alert and oriented. Airway Examination: normal oropharyngeal airway and neck mobility. Respiratory Examination: clear to auscultation. CV Examination: normal. Prophylactic Antibiotics: The patient does not require prophylactic antibiotics. Prior Anticoagulants: The patient has taken no anticoagulant or antiplatelet agents except for NSAID medication. ASA Grade Assessment: II - A patient with mild systemic disease. After reviewing the risks and benefits, the patient was deemed in satisfactory condition to undergo the procedure. The anesthesia plan was to use monitored anesthesia care (MAC). Immediately prior to administration of medications, the patient was re-assessed for adequacy to receive sedatives. The heart rate, respiratory rate, oxygen saturations, blood pressure, adequacy of pulmonary ventilation, and response to care were monitored throughout the procedure. The physical status of the patient was re-assessed after the procedure. After I obtained informed consent, the scope was passed under direct vision. Throughout the procedure, the patient's blood pressure, pulse, and oxygen saturations were monitored continuously. The colonoscope was introduced through the anus and advanced to the cecum, identified by appendiceal orifice and ileocecal valve. The colonoscopy was performed without difficulty. The patient tolerated the procedure well. The quality of the bowel preparation was adequate. The ileocecal valve, appendiceal orifice, and rectum were photographed. Scope In: 1:31:41 PM Scope Withdrawal Time 0 hours 8 minutes 14 seconds Scope Out: 1:45:31 PM Total Procedure Duration Time 0 hours 13 minutes 50 seconds Findings: The perianal and digital rectal examinations were normal. A 5 mm polyp was found in the rectum. The polyp was sessile. The polyp was removed with a cold biopsy forceps. Resection and retrieval were complete. Verification of patient identification for the specimen was done. Estimated blood loss was minimal. A 13 mm polyp was found in the cecum. The polyp was sessile. The polyp was removed with a hot snare. Resection and retrieval were complete. Verification of patient identification for the specimen was done. To prevent bleeding post-intervention, one hemostatic clip was successfully placed. 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 There was no bleeding at the end of the procedure. Impression: - One 5 mm polyp in the rectum, removed with a cold biopsy forceps. Resected and retrieved. - One 13 mm polyp in the cecum, removed with a hot snare. Resected and retrieved. Clip was placed. 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 Recommendation: - Repeat colonoscopy in 5 years for surveillance. - Continue present medications. Procedure Code(s): --- Professional --- 78707, Colonoscopy, flexible; with removal of tumor(s), polyp(s), or other lesion(s) by snare technique 55411, 59, Colonoscopy, flexible; with biopsy, single or multiple CPT copyright 2021 [employer]. All rights reserved. The codes documented in this report are preliminary and upon line installer review may be revised to meet current compliance requirements. Mg Welch DO 09/22/2024 1:50:40 PM This report has been signed electronically. Number of Addenda: 0 Note Initiated On: 09/22/2024 1:22 PM
--- NOTE | 2024-09-22 13:54 | PCM.POST.ANE ---
Anesthesia: Postop Eval I Current Vital Signs Temperature: 97.4 F Pulse Rate: 72 Blood Pressure: 114/73 Respiratory Rate: 16 Pulse Ox: 99 Oxygen Delivery Method: Room Air Assessment Airway patent: Yes Spontaneous unlabored respirations: Yes Mental status: Awake and Calm nausea: No Vomiting: No Anesthesia Complication: No Fluid Hydration Crystalloid volume administer (ml): 50 Total IV fluid infused: 50 Progress Note Anesthesia document: Postop Eval 1 completed: Yes
[2024-09-22 13:55] VITALS: BP 106/74; BP 114/73; BP 125/80; PULSE 62; PULSE 72; RESP 16; TEMP 36.3; O2SAT 99
[2024-09-22 14:00] VITALS: BP 107/80; BP 125/80; PULSE 66; RESP 16; TEMP 36.3; O2SAT 99
[2024-09-22 14:27] VITALS: BP 125/80
--- NOTE | 2024-09-22 16:52 | PCM.POSTANE2 ---
Anesthesia Postop Eval I Sum Postop Eval Completion status Anesthesia document: Postop Eval 1 completed: Yes Anesthesia Postop Eval I Summary Anesthesia Postop Eval I Summary: Anesthesia Postop Eval I: Assessment Summary Airway patent Yes 09/22/24 13:55 [email or web address] Spontaneous unlabored Yes 09/22/24 13:55 [email or web address] respirations Mental status Awake,Calm 09/22/24 13:55 [email or web address] nausea No 09/22/24 13:55 [email or web address] Vomiting No 09/22/24 13:55 [email or web address] Anesthesia Postop Eval I: Fluid Summary Crystalloid volume administer 50 09/22/24 13:55 [email or web address] (ml) Colloids volume administered ( ml) Blood Product volume administered (ml) Total IV fluid infused 50 09/22/24 13:55 [email or web address] Anesthesia Postop Eval I: Summary Notes Anesthesia Complication No 09/22/24 13:55 [email or web address] Anesthesia Complication Comment: Post-operative progress note Anesthesia: Postop Eval II Evaluation Mental status: Awake and Calm Pain Level: 0 nausea: No Vomiting: No Complications Anesthesia Complication: No
== END 2024-09-22 14:29 | disposition home or self-care (01) ==
LOC: EN 11:24 → AC 11:26
PROVIDERS: PCP Family Medicine; Referring Provider Family Medicine; Visit Provider Internal Medicine Gastroenterology
PROC: 0DJD8ZZ Inspection of Lower Intestinal Tract, Via Natural or Artificial Opening Endoscopic (ICD-10-PCS; CPT 45378; principal; 2024-09-22 12:25)
DX: Z12.11 Encounter for screening for malignant neoplasm of colon (principal); D12.8 Benign neoplasm of rectum; K63.5 Polyp of colon; Z80.0 Family history of malignant neoplasm of digestive organs
CPT/HCPCS: 45380; 45385; 88305; A4216; J2405

== ENCOUNTER → 2025-06-08 | Outpatient (CLI) | payer OTHER, SELFPAY ==
[2025-06-08 12:28] LABS: Color, Urine Yellow (Yellow); Glucose, Dipstick Normal (Normal); Ketone-Dipstick Negative (Negative); Leukocyte Esterase-Dipstick Negative /ul (Negative); Nitrite-Dipstick Negative (Negative); Occult Blood-Urine Negative /ul (Negative); Protein-Dipstick 15 mg/dl (Negative); Specific Gravity, Urine 1.020 (1.002-1.030); Urine Bilirubin Dipstick Negative (Negative)
[2025-06-08 12:29] LABS: Hematocrit 41.2 % (37-47); Hemoglobin 13.7 g/dL (12.0-15.0); Immature Granulocytes Count 0.010 X10^3/uL (0.0-0.0); Mean Corp Hgb Conc 33.3 g/dL (32-36); Mean Corpuscular Volume 89.8 fL (81-99); Mean Platelet Vol. 10.7 fl (6.2-12.0); NRBC Flagged by Analyzer 0 % (0-5); Platelet Count 306 K/mm3 (150-450); RBC Distribution Width CV 13.4 % (11.6-14.6); RBC Distribution Width SD 43.9 fl (35.1-43.9); Red Blood Count 4.59 M/mm3 (4.2-5.4); White Blood Count 4.9 K/mm3 (4.4-11.0)
[2025-06-08 12:35] LABS: Mucous, Urine 1+ /hpf (<or=2+); Red Blood Cells-Urine 0-5 SEEN /hpf (0-5); Squamous Epithelial Cells - UA 0-5 SEEN /hpf (5-10)
[2025-06-08 13:00] LABS: AST(SGOT) 18 U/L (<=31); Alanine Aminotransfer ALT/SGPT 16 U/L (<=34); Albumin, Serum 4.2 g/dL (3.5-5.0); Alkaline Phosphatase 110 U/L (35-104); Anion Gap 11 (5-15); BUN 13 mg/dL (4-19); BUN/Creat Ratio 21.3 RATIO (10-20); Calcium,Total 9.7 mg/dL (7.6-11.0); Carbon Dioxide 27.1 mmol/L (21.0-32.0); Chloride 104 mmol/L (98-108); Cholesterol 238 mg/dL (<=200); Globulin 2.9 g/dL (2.2-4.2); Glucose 93 mg/dL (70-99); Low Density Lipoprotein Calc. 156 mg/dL; Potassium 4.0 mmol/L (3.3-5.1); Triglycerides 85 mg/dL; Very Low Density Lipoprotein 17 mg/dL (5-40); cholesterol:hdl ratio screen 3.66
== END | disposition home or self-care (01) ==
LOC: MTLAB 10:08
PROVIDERS: PCP Family Medicine; Referring Provider Family Medicine; Visit Provider Family Medicine
DX: Z00.00 Encounter for general adult medical examination without abnormal findings (principal)
CPT/HCPCS: 36415; 80053; 80061; 81001; 84443; 85025